=== PATIENT | female | born 1945 | race Caucasian/White ===

== ENCOUNTER 2021-03-24 08:00 | Outpatient (RCR) | payer MEDICARE, SELFPAY | END 2021-04-28 23:59 | LOC: IMMUN 08:00 | PROVIDERS: PCP Nurse Practitioner Family; Referring Provider Family Medicine; Visit Provider Family Medicine | DX: Z23 Encounter for immunization (principal) | CPT/HCPCS: 0001A; 0002A; 91300 ==

== ENCOUNTER 2022-02-15 10:02 | Outpatient (CLI) | payer MEDICARE, SELFPAY ==
[2022-02-15 10:08] LABS: Bacteria 0 SEEN /hpf (None Seen); Mucous, Urine 0 SEEN /hpf (<or=2+); Red Blood Cells-Urine 0 SEEN /hpf (0-5); Squamous Epithelial Cells - UA 0 SEEN /hpf (5-10); White Blood Cells 0 SEEN /hpf (0-5)
[2022-02-15 12:15] LABS: Absolute Lymphocyte Count 1.98 X10^3/uL (0.83-4.51); Absolute Neutrophil Count 4.1 X10^3/uL (2.0-7.7); Basophil# 0.04 X10^3/uL; Basophil% 0.6 % (0-1); Eosinophil# 0.15 X10^3/uL; Eosinophils% 2.2 % (0-5); Hematocrit 39.4 % (37-47); Hemoglobin 12.9 g/dL (12.0-15.0); Lymphocyte # 1.98 X10^3/ul (0.83-4.51); Lymphocyte % 28.8 % (19-41); Mean Corp Hgb Conc 32.7 g/dL (32-36); Mean Corpuscular Hgb 31.9 pg (27.0-32.0); Mean Corpuscular Volume 97.5 fL (81-99); Mean Platelet Vol. 9.9 fl (6.2-12.0); Monocyte# 0.57 X10^3/uL; Monocyte% 8.3 % (0-10); NRBC Flagged by Analyzer 0 % (0-5); Neutrophil # 4.12 X10^3/uL (2.7-7.7); Neutrophil % 59.8 % (47-70); Platelet Count 372 K/mm3 (150-450); RBC Distribution Width CV 11.9 % (11.6-14.6); RBC Distribution Width SD 43.2 fl (35.1-43.9); Red Blood Count 4.04 M/mm3 (4.2-5.4); White Blood Count 6.9 K/mm3 (4.4-11.0)
[2022-02-15 12:19] LABS: Color, Urine Yellow (Yellow); Glucose, Dipstick Normal (Normal); Ketone-Dipstick Negative (Negative); Leukocyte Esterase-Dipstick Negative /ul (Negative); Nitrite-Dipstick Negative (Negative); Occult Blood-Urine Negative /ul (Negative); Protein-Dipstick Negative (Negative); Urine Bilirubin Dipstick Negative (Negative); Urine Clarity Clear (Clear); Urine Urobilinogen Normal (Normal)
[2022-02-15 12:50] LABS: ALB/GLOB Ratio 1.1 RATIO (0.9-2.4); AST(SGOT) 16 U/L (15-37); Alanine Aminotransfer ALT/SGPT 16 U/L (13-56); Albumin, Serum 4.1 g/dL (3.2-5.0); Alkaline Phosphatase 89 U/L (45-117); Anion Gap 6 (5-15); BUN 21 mg/dL (7-18); BUN/Creat Ratio 22.1 RATIO (10-20); Calcium,Total 9.6 mg/dL (8.5-10.1); Chloride 106 mmol/L (98-107); Cholesterol 197 mg/dL (200); Creatinine, Serum 0.95 mg/dL (0.55-1.02); EST Glomerular Filtration Rate 60 mL/min (>60); Est Glom Filt Rate - Afr Amer 73 mL/min (>60); Globulin 3.6 g/dL (2.2-4.2); Glucose 98 mg/dL (74-106); High Density Lipoprotein 49 mg/dL; Potassium 3.7 mmol/L (3.5-5.1); Protein, Total 7.7 g/dL (6.4-8.2); Sodium Level 140 mmol/L (136-145); T4 Free Direct 0.96 ng/dL (0.76-1.46); Triglycerides 92 mg/dL; Very Low Density Lipoprotein 18 mg/dL (5-40)
[2022-02-15 12:55] LABS: Vitamin B12 216 pg/mL (211-911)
[2022-03-01 17:38] LABS: VITAMIN B6 4.4 ug/L (3.4-65.2); Vitamin B1, Thiamine 119.1 nmol/L (66.5-200.0)
== END 2022-02-15 23:59 | disposition home or self-care (01) ==
LOC: MFPLAB 10:05
PROVIDERS: PCP Family Medicine; Referring Provider Family Medicine; Visit Provider Family Medicine
DX: I10 Essential (primary) hypertension (principal); E04.1 Nontoxic single thyroid nodule; G62.9 Polyneuropathy, unspecified
CPT/HCPCS: 36415; 80053; 80061; 81001; 82607; 84207; 84425; 84439; 84443; 85025

== ENCOUNTER → 2022-03-03 | Outpatient (CLI) | payer MEDICARE, SELFPAY ==
--- NOTE | 2022-03-03 09:56 | ART_ITS ---
Reason For Study: Decresaed pedal pulses Procedure A bilateral lower extremity continuous wave Doppler with analog waveform analysis,segmental pressures,and ankle brachial indexes with exercise. Left Segmental Pressures Left brachial= 158mmHg. Left posterior tibial artery = 163mmHg. Left dorsalis pedis artery = 170mmHg. The left dorsalis pedis waveforms are triphasic. The left posterior tibial artery waveforms are triphasic. Right Segmental Pressures Right brachial= 167mmHg. Right posterior tibial artery = 173mmHg. Right dorsalis pedis artery = 185mmHg. The right dorsalis pedis waveforms are triphasic. The right posterior tibial artery waveforms are triphasic. Indices The right ankle brachial index by the dorsalis pedis is 1.11. The right ankle brachial index by the posterior tibial artery is 1.04. The right post exercise ankle brachial index is 1.25. The left ankle brachial index by the dorsalis pedis is 1.02. The left ankle brachial index by the posterior tibial artery is 0.98. The left post exercise ankle brachial index is 1.19. VL/Lower Ext Art Exam w/ Exercise Interpretation Summary Triphasic Doppler waveforms are noted at ankle level bilaterally. Pulse-volume recordings appear satisfactory bilaterally. Resting ankle-brachial indices are normal bilaterally . The patient was ambulated on a treadmill at 1.5 MPH and a 5% grade, following which ankle press ures augmented bilaterally, a normal physiological response. There is no evidence of significant arterial occlusive disease in the lower ext remities bilaterally. Ordering Physician: Stevan Walters Referring Physician: Stevan Walters Performed By: Belem Garza RVT
--- NOTE | 2022-03-03 10:06 | US_ITS ---
INDICATION: THYROID NODULE EXAMINATION: Ultrasound US Thyroid (eg thyroid, parathyroid, parotid) TECHNIQUE: Monroe scale and color doppler imaging was performed of the thyroid gland. COMPARISON: None. FINDINGS: RIGHT THYROID LOBE: The right lobe of the thyroid gland is prominent in size demonstrates homogeneous echogenicity is unremarkable vascularity, The right lobe of the thyroid gland measures 5.0 x 1.5 x 1.5 cm. 1 nodule visualized measuring 0.7 cm, three other nodules measuring less than 0.5 cm. #1- Location: Upper pole Size: 0.3 x 0.2 x 0.2 cm Composition: 0 Echogenicity: 2 Shape: 0 Margins: 0 Echogenic Foci: 0 Total points 2, TIRADS level TR2 #2- Location: Midpole Size: 0.4 x 0.3 x 0.3 cm. Composition: 2 Echogenicity: 1 Shape: 0 Margins: 0 Echogenic Foci: 0 Total points 3, TIRADS level TR3 #3- Location: Midpole Size: 0.7 x 0.7 x 0.6 cm Composition: 2 Echogenicity: 1 Shape: 0 Margins: 0 Echogenic Foci: 0 Total points 3, TIRADS level TR3 #4- Location: Lower pole Size: 0.3 x 0.2 x 0.2 cm. Composition: 2 Echogenicity: 1 Shape: 0 Margins: 0 Echogenic Foci: 0 Total points 3, TIRADS level TR3 LEFT THYROID LOBE: The left lobe of the thyroid gland is enlarged in size demonstrating homogenous echogenicity and unremarkable vascularity. The left lobe of the thyroid gland measures 4.9 x 1.5 x 1.1 cm. 2 nodules are visualized within the left lobe. #5- Location: Upper pole Size: 0.2 x 0.2 x 0.2 cm. Composition: 0 Echogenicity: 2 Shape: 0 Margins: 0 Echogenic Foci: 0 Total points 2, TIRADS level TR2 #6- Location: Lower Size: 0.5 x 0.4 x 0.4 cm Composition: 0 Echogenicity: 2 Shape: 0 Margins: 0 Echogenic Foci: 0 Total points 2, TIRADS level TR2 ISTHMUS: The isthmus demonstrates homogenous echogenicity and measures 0.5 cm in AP diameter. A hyperechoic nodule is visualized within the isthmus measuring 0.4 x 0.2 x 0.4 cm. US/Thyroid IMPRESSION: Unremarkable size and echogenicity of the thyroid gland. A 0.7 cm TR 3 nodule is visualized in the lower pole of the right lobe. 3 nodules measuring less than 0.5 cm are visualized in the right lobe. 2 nodules measuring less than 0.5 cm are visualized in the left lobe. A single nodule measuring less than 0.5 cm is visualized in the isthmus. TI-RADS follow up recommendations: TR1: Benign (0pts) No FNA biopsy. TR2: Not suspicious (2 pts) No FNA biopsy. TR3: Mildly suspicious (3 pts) FNA biopsy if nodule at least 2.5cm; follow if at least 1.5cm. TR4: Moderately suspicious (4-6 pts) FNA biopsy if nodule at least 1.5cm; follow if at least 1 cm. TR5: Highly suspicious (at least 7 pts) FNA if nodule at least 1cm; follow if at least 0.5cm. Electronically Signed: Rafa Felder MD at 13:15 EDT ,
== END | disposition home or self-care (01) ==
PROVIDERS: PCP Family Medicine; Referring Provider Family Medicine; Visit Provider Family Medicine
DX: R09.89 Other specified symptoms and signs involving the circulatory and respiratory systems (principal)
CPT/HCPCS: 76536; 93924

== ENCOUNTER → 2022-03-10 | Outpatient (CLI) | payer MEDICARE, SELFPAY ==
--- NOTE | 2022-03-10 09:57 | STRESSREP ---
Stress Test Report Date: 03-10-2022 Procedure: Exercise tolerance test/imaging study Indications: Chest pain Consent: Per the patient Procedure: The patient exercised on a Mnado protocol for 6 minutes completing Stage II achieving a peak heart rate of 139 bpm (97% predicted maximal heart rate) with a peak blood pressure 180/66 mmHg and a peak MET capacity of 7 METs. The baseline ECG demonstrated normal sinus rhythm. The peak exercise ECG demonstrated somatic/motion artifact with no obvious ECG changes. There was a rare PVC during exercise and an occasional PVC in early recovery. The functional capacity was considered good. There was no complaint of chest discomfort during exercise or recovery. The examination was discontinued secondary to dyspnea. Impression: 1. Technically adequate (percent predicted maximal heart rate greater than 85%) exercise tolerance test 2. Peak exercise ECG with somatic/motion artifact with no obvious ECG changes 3. There was a rare PVC during exercise and an occasional PVC in early recovery 4. Nuclear images pending Myocardial perfusion imaging study: Technique: The patient was injected with 11 point mCi of technetium 99m Cardiolite and subsequently rest SPECT Cardiolite nuclear imaging was obtained in the horizontal long, vertical long, and short axis views. The patient exercised on a Mando protocol for 6 minutes completing Stage II achieving a peak heart rate of 139 bpm (97% predicted maximal heart rate) with a peak blood pressure 180/66 mmHg and a peak MET capacity of 7 METs. The patient was injected with 34.8 mCi of technetium 99m Cardiolite and subsequently stress SPECT Cardiolite nuclear imaging was obtained in the horizontal long, vertical long, and short axis views. A gated Cardiolite study at peak stress was obtained. Interpretation: Rest and stress SPECT Cardiolite nuclear imaging status post realignment, normalization, and attenuation correction, demonstrates the appearance of relative uniform tracer uptake and myocardial perfusion appearing within normal limits. There is end systolic thickening and brightening. The gated Cardiolite study demonstrates myocardial thickening and inward wall motion. The reported LVEF is 83%. Impression: 1. Rest and stress SPECT Cardiolite nuclear imaging demonstrate relative uniform tracer uptake and myocardial perfusion appearing within normal limits. 2. The gated Cardiolite study reports an LVEF of 83%. This note was generated with [employer] software. It may contain incorrect words, spelling, and punctuation that were not noted in checking the note before signing.
== END | disposition home or self-care (01) ==
PROVIDERS: PCP Family Medicine; Referring Provider Family Medicine; Visit Provider Family Medicine
DX: E04.1 Nontoxic single thyroid nodule (principal); R07.9 Chest pain, unspecified; R09.89 Other specified symptoms and signs involving the circulatory and respiratory systems
CPT/HCPCS: 78452; 93017; A9500; A4216

== ENCOUNTER → 2022-05-31 | Outpatient (CLI) | payer MEDICARE, SELFPAY ==
[2022-05-31 12:48] LABS: Vitamin B12 356 pg/mL (211-911)
[2022-06-06 20:18] LABS: VITAMIN B6 18.1 ug/L (3.4-65.2); Vitamin B1, Thiamine 268.2 nmol/L (66.5-200.0)
== END | disposition home or self-care (01) ==
LOC: MFPLAB 10:52
PROVIDERS: PCP Family Medicine; Visit Provider Family Medicine
DX: G62.9 Polyneuropathy, unspecified (principal)
CPT/HCPCS: 36415; 82607; 84207; 84425

== ENCOUNTER → 2022-08-08 | Outpatient (CLI) | payer MEDICARE, SELFPAY ==
--- NOTE | 2022-08-08 14:02 | NEURO_ITS ---
NCS and/or EMG Patient Report Ordering Doctor: Stevan Walters DATE OF SERVICE: 08/08/22 Indication: Approximately 8 months of bilateral foot paresthesias. Associated loss of temperature sensation in the distal lower extremities. No shazia muscle weakness. No axial or radicular back pain. Findings: Nerve conduction studies were performed in the right and left lower extremities. The right peroneal motor study recording the extensor digitorum brevis showed a normal amplitude, normal distal latency and normal conduction velocity. No conduction block or focal slowing was present across the fibular neck. The right tibial motor study recording the abductor hallucis brevis showed a normal amplitude, normal distal latency and normal conduction velocity. Right sural sensory response showed a normal amplitude and conduction velocity. Right superficial peroneal sensory response showed a normal amplitude and cond uction velocity. Right medial plantar response showed a normal amplitude and conduction velocity. The left peroneal motor study recording the extensor digitorum brevis showed a normal amplitude, normal distal latency and normal conduction velocity. No conduction block or focal slowing was present across the fibular neck. The left tibial motor study recording the abductor hallucis brevis showed a normal amplitude, normal distal latency and normal conduction velocity. Left sural sensory response showed a normal amplitude and conduction velocity. Left superficial peroneal sensory response showed a normal amplitude and conduction velocity. Left medial plantar response showed a normal amplitude and conduction velocity. Needle EMG of the right lower extremity muscles was performed. No denervation was present in any muscle. Motor unit morphology, activation, and recruitment patterns were normal. Impression: This is a normal study. There is no electrophysiologic evidence of peripheral n europathy. In addition, there was no electrophysiologic evidence of lumbar radiculopathy. Please note: routine nerve conduction studies and needle EMG assess the larger, myelinated motor and sensory fibers. Thus, routine electrodiagnostic studies may be insensitive in detecting a peripheral neuropathy restricted to small fibers alone (i.e., pain, temperature and autonomic fibers). However, most peripheral neuropathies with predominantly small fiber large dysfunction will also involve large fibers to a lesser extent, and will demonstrate abnormalities on electrodiagnostic studies. Thus, clinical correlation is required in the interpretation of this negative electrodiagnostic study if an isolated small fiber neuropathy is considered. Kwadwo Morrissey D.O. Multi Select Codes Neurology Neurology Interp Codes: 11475-90 Musc test done w/n test comp (interp) and 52133-31 Nrv cndj test 9-10 studies (interp)
== END | disposition home or self-care (01) ==
LOC: PSN 12:39
PROVIDERS: PCP Family Medicine; Referring Provider Family Medicine; Visit Provider Family Medicine
DX: G62.9 Polyneuropathy, unspecified (principal); R20.0 Anesthesia of skin
CPT/HCPCS: 95886; 95911

== ENCOUNTER → 2022-08-11 | Outpatient (CLI) | payer MEDICARE, SELFPAY ==
[2022-08-11 09:02] LABS: Bacteria 0 SEEN /hpf (None Seen); Mucous, Urine 0 SEEN /hpf (<or=2+); Red Blood Cells-Urine 0 SEEN /hpf (0-5); White Blood Cells 0 SEEN /hpf (0-5)
[2022-08-11 09:58] LABS: Absolute Lymphocyte Count 2.57 X10^3/uL (0.83-4.51); Absolute Neutrophil Count 4.1 X10^3/uL (2.0-7.7); Basophil# 0.04 X10^3/uL; Basophil% 0.5 % (0-1); Eosinophil# 0.25 X10^3/uL; Eosinophils% 3.2 % (0-5); Hematocrit 38.9 % (37-47); Hemoglobin 12.8 g/dL (12.0-15.0); Lymphocyte # 2.57 X10^3/ul (0.83-4.51); Lymphocyte % 33.1 % (19-41); Mean Corp Hgb Conc 32.9 g/dL (32-36); Mean Corpuscular Hgb 31.4 pg (27.0-32.0); Mean Corpuscular Volume 95.3 fL (81-99); Mean Platelet Vol. 9.6 fl (6.2-12.0); Monocyte# 0.76 X10^3/uL; Monocyte% 9.8 % (0-10); NRBC Flagged by Analyzer 0 % (0-5); Neutrophil # 4.09 X10^3/uL (2.7-7.7); Neutrophil % 52.8 % (47-70); Platelet Count 301 K/mm3 (150-450); RBC Distribution Width CV 12.6 % (11.6-14.6); RBC Distribution Width SD 43.6 fl (35.1-43.9); Red Blood Count 4.08 M/mm3 (4.2-5.4); White Blood Count 7.8 K/mm3 (4.4-11.0)
[2022-08-11 10:02] LABS: Color, Urine Yellow (Yellow); Glucose, Dipstick Normal (Normal); Ketone-Dipstick Negative (Negative); Leukocyte Esterase-Dipstick Negative /ul (Negative); Nitrite-Dipstick Negative (Negative); Occult Blood-Urine Negative /ul (Negative); Protein-Dipstick Negative (Negative); Specific Gravity, Urine 1.005 (1.002-1.030); Urine Bilirubin Dipstick Negative (Negative); Urine Clarity Clear (Clear); Urine Urobilinogen Normal (Normal)
[2022-08-11 10:08] LABS: Squamous Epithelial Cells - UA 0-5 SEEN /hpf (5-10)
[2022-08-11 10:23] LABS: Vitamin B12 271 pg/mL (211-911)
[2022-08-11 10:25] LABS: AST(SGOT) 16 U/L (15-37); Alanine Aminotransfer ALT/SGPT 22 U/L (13-56); Albumin, Serum 3.6 g/dL (3.2-5.0); Alkaline Phosphatase 92 U/L (45-117); Anion Gap 9 (5-15); BUN 15 mg/dL (7-18); BUN/Creat Ratio 18.8 RATIO (10-20); Calcium,Total 8.9 mg/dL (8.5-10.1); Chloride 106 mmol/L (98-107); Cholesterol 194 mg/dL (200); EST Glomerular Filtration Rate 74 mL/min (>60); Est Glom Filt Rate - Afr Amer 89 mL/min (>60); Globulin 3.7 g/dL (2.2-4.2); Glucose 96 mg/dL (74-106); High Density Lipoprotein 43 mg/dL; Potassium 3.8 mmol/L (3.5-5.1); Protein, Total 7.3 g/dL (6.4-8.2); Sodium Level 138 mmol/L (136-145); Thyroid Stim Hormone (TSH) 3.62 uIU/mL (0.358-3.74); Triglycerides 294 mg/dL; Very Low Density Lipoprotein 59 mg/dL (5-40)
[2022-08-16 12:01] LABS: VITAMIN B6 14.7 ug/L (3.4-65.2); Vitamin B1, Thiamine 257.8 nmol/L (66.5-200.0)
== END | disposition home or self-care (01) ==
LOC: MFPLAB 08:56
PROVIDERS: PCP Family Medicine; Referring Provider Family Medicine; Visit Provider Family Medicine
DX: I10 Essential (primary) hypertension (principal); G62.9 Polyneuropathy, unspecified
CPT/HCPCS: 36415; 80053; 80061; 81001; 82607; 84207; 84425; 84443; 85025

== ENCOUNTER → 2023-01-09 | Outpatient (CLI) | payer MEDICARE, SELFPAY ==
--- NOTE | 2023-01-09 08:35 | BI_ITS ---
MAMMOGRAPHY - BILATERAL SCREENING REASON FOR EXAM: Female, 77 years old. Routine annual screening examination. PERTINENT HISTORY: Non-contributory. Remote left excisional breast biopsies. TECHNIQUE: Digital bilateral breast jaye (3D mammographic acquisition) in the CC and MLO projections. 2-D mediolateral oblique (MLO) and craniocaudad (CC) views of both breasts were obtained. CAD: Full Field Digital Mammography with Computer Added Detection was performed. COMPARISON: Comparison is made with prior outside examination dated 10/02/2017 FINDINGS: Breast Composition: There are scattered areas of fibroglandular density. There are no dominant masses or suspicious calcifications. Stable small benign-appearing bilateral axillary lymph nodes nodes. No other significant abnormalities are identified. There has been no significant change since the prior study. BI/SCRN MAMM (CAD)W/JAYE BILAT IMPRESSION: Stable bilateral screening mammogram. Yearly follow-up mammogram recommended. (A) ASSESSMENT CATEGORY: BIRADS Category 2: Benign. A letter regarding these results will be sent to the patient by the facility within 30 days. Approximately 10% of breast cancers are not detected by mammography. A normal mammogram should not delay biopsy of a clinically suspicious abnormality. [id number] Electronically Signed: James Gonzales MD at 9:34 EST ,
== END | disposition home or self-care (01) ==
LOC: OPBI 08:32
PROVIDERS: PCP Family Medicine; Referring Provider Nurse Practitioner Family; Visit Provider Nurse Practitioner Family
DX: Z12.31 Encounter for screening mammogram for malignant neoplasm of breast (principal)
CPT/HCPCS: 77063; 77067

== ENCOUNTER → 2023-04-05 | Outpatient (CLI) | payer MEDICARE, SELFPAY ==
[2023-04-05 09:40] LABS: Mucous, Urine 0 SEEN /hpf (<or=2+); Red Blood Cells-Urine 0 SEEN /hpf (0-5)
[2023-04-05 10:10] LABS: Absolute Lymphocyte Count 2.35 X10^3/uL (0.83-4.51); Absolute Neutrophil Count 5.1 X10^3/uL (2.0-7.7); Basophil# 0.05 X10^3/uL; Basophil% 0.6 % (0-1); Eosinophil# 0.27 X10^3/uL; Eosinophils% 3.1 % (0-5); Hemoglobin 13.2 g/dL (12.0-15.0); Lymphocyte # 2.35 X10^3/ul (0.83-4.51); Mean Corp Hgb Conc 32.2 g/dL (32-36); Mean Corpuscular Hgb 31.1 pg (27.0-32.0); Mean Corpuscular Volume 96.7 fL (81-99); Mean Platelet Vol. 9.5 fl (6.2-12.0); Monocyte# 0.85 X10^3/uL; Monocyte% 9.8 % (0-10); NRBC Flagged by Analyzer 0 % (0-5); Neutrophil # 5.14 X10^3/uL (2.7-7.7); Platelet Count 316 K/mm3 (150-450); RBC Distribution Width CV 12.4 % (11.6-14.6); RBC Distribution Width SD 44.4 fl (35.1-43.9); Red Blood Count 4.24 M/mm3 (4.2-5.4); White Blood Count 8.7 K/mm3 (4.4-11.0)
[2023-04-05 10:56] LABS: Vitamin B12 358 pg/mL (211-911)
[2023-04-05 10:57] LABS: ALB/GLOB Ratio 1.1 RATIO (0.9-2.4); AST(SGOT) 21 U/L (15-37); Alanine Aminotransfer ALT/SGPT 28 U/L (13-56); Alkaline Phosphatase 91 U/L (45-117); Anion Gap 7 (5-15); BUN 21 mg/dL (7-18); BUN/Creat Ratio 21.6 RATIO (10-20); Calcium,Total 9.4 mg/dL (8.5-10.1); Chloride 106 mmol/L (98-107); Cholesterol 227 mg/dL (200); Creatinine, Serum 0.97 mg/dL (0.55-1.02); EST Glomerular Filtration Rate 59 mL/min (>60); Est Glom Filt Rate - Afr Amer 71 mL/min (>60); Globulin 3.8 g/dL (2.2-4.2); Glucose 99 mg/dL (74-106); High Density Lipoprotein 39 mg/dL; Potassium 3.8 mmol/L (3.5-5.1); Protein, Total 7.8 g/dL (6.4-8.2); Sodium Level 139 mmol/L (136-145); Triglycerides 329 mg/dL; Very Low Density Lipoprotein 66 mg/dL (5-40)
[2023-04-05 12:41] LABS: Color, Urine Yellow (Yellow); Glucose, Dipstick Normal (Normal); Ketone-Dipstick Negative (Negative); Leukocyte Esterase-Dipstick 25 /ul (Negative); Nitrite-Dipstick Negative (Negative); Occult Blood-Urine Negative /ul (Negative); Protein-Dipstick Negative (Negative); Urine Bilirubin Dipstick Negative (Negative); Urine Clarity Sl. Cloudy (Clear); Urine Urobilinogen Normal (Normal)
[2023-04-05 13:04] LABS: Bacteria 1+ /hpf (None Seen); Squamous Epithelial Cells - UA 0-5 SEEN /hpf (5-10); White Blood Cells 0-5 SEEN /hpf (0-5)
[2023-04-08 06:08] LABS: VITAMIN B6 17.2 ug/L (3.4-65.2); Vitamin B1, Thiamine 215.5 nmol/L (66.5-200.0)
== END | disposition home or self-care (01) ==
LOC: MFPLAB 09:32
PROVIDERS: PCP Family Medicine; Visit Provider Family Medicine
DX: I10 Essential (primary) hypertension (principal); E55.9 Vitamin D deficiency, unspecified; E53.9 Vitamin B deficiency, unspecified
CPT/HCPCS: 36415; 80053; 80061; 81001; 82306; 82607; 84207; 84425; 85025

== ENCOUNTER → 2023-04-13 | Outpatient (CLI) | payer MEDICARE, SELFPAY ==
[2023-04-13 12:32] LABS: Anion Gap 8 (5-15); BUN 16 mg/dL (7-18); BUN/Creat Ratio 17.9 RATIO (10-20); Calcium,Total 9.3 mg/dL (8.5-10.1); Chloride 105 mmol/L (98-107); Creatinine, Serum 0.89 mg/dL (0.55-1.02); EST Glomerular Filtration Rate 65 mL/min (>60); Est Glom Filt Rate - Afr Amer 78 mL/min (>60); Glucose 117 mg/dL (74-106); Potassium 3.8 mmol/L (3.5-5.1); Sodium Level 139 mmol/L (136-145)
== END | disposition home or self-care (01) ==
LOC: MFPLAB 10:02
PROVIDERS: PCP Family Medicine; Visit Provider Family Medicine
DX: E78.5 Hyperlipidemia, unspecified (principal)
CPT/HCPCS: 36415; 80048

== ENCOUNTER → 2023-08-30 | Outpatient (CLI) | payer MEDICARE, SELFPAY ==
[2023-08-30 08:58] LABS: Bacteria 0 SEEN /hpf (None Seen); Mucous, Urine 0 SEEN /hpf (<or=2+); Red Blood Cells-Urine 0 SEEN /hpf (0-5)
[2023-08-30 10:03] LABS: Absolute Lymphocyte Count 1.79 X10^3/uL (0.83-4.51); Absolute Neutrophil Count 4.6 X10^3/uL (2.0-7.7); Basophil# 0.03 X10^3/uL; Basophil% 0.4 % (0-1); Eosinophils% 2.8 % (0-5); Hematocrit 39.2 % (37-47); Hemoglobin 12.5 g/dL (12.0-15.0); Lymphocyte # 1.79 X10^3/ul (0.83-4.51); Lymphocyte % 24.8 % (19-41); Mean Corp Hgb Conc 31.9 g/dL (32-36); Mean Corpuscular Volume 97.3 fL (81-99); Mean Platelet Vol. 9.7 fl (6.2-12.0); Monocyte# 0.61 X10^3/uL; Monocyte% 8.5 % (0-10); NRBC Flagged by Analyzer 0 % (0-5); Neutrophil # 4.55 X10^3/uL (2.7-7.7); Neutrophil % 63.1 % (47-70); Platelet Count 249 K/mm3 (150-450); RBC Distribution Width CV 12.3 % (11.6-14.6); RBC Distribution Width SD 44.3 fl (35.1-43.9); Red Blood Count 4.03 M/mm3 (4.2-5.4); White Blood Count 7.2 K/mm3 (4.4-11.0)
[2023-08-30 10:36] LABS: Color, Urine Yellow (Yellow); Glucose, Dipstick Normal (Normal); Ketone-Dipstick Negative (Negative); Leukocyte Esterase-Dipstick 25 /ul (Negative); Nitrite-Dipstick Negative (Negative); Occult Blood-Urine Negative /ul (Negative); Protein-Dipstick 15 mg/dl (Negative); Specific Gravity, Urine 1.015 (1.002-1.030); Urine Bilirubin Dipstick Negative (Negative); Urine Clarity Clear (Clear); Urine Urobilinogen Normal (Normal)
[2023-08-30 10:47] LABS: Vitamin B12 287 pg/mL (211-911); Vitamin D,25 Hydroxy 49.6 ng/mL
[2023-08-30 11:08] LABS: Squamous Epithelial Cells - UA 0-5 SEEN /hpf (5-10); White Blood Cells 0-5 SEEN /hpf (0-5)
[2023-08-30 11:24] LABS: AST(SGOT) 18 U/L (15-37); Alanine Aminotransfer ALT/SGPT 26 U/L (13-56); Albumin, Serum 3.6 g/dL (3.2-5.0); Alkaline Phosphatase 82 U/L (45-117); Anion Gap 6 (5-15); BUN 16 mg/dL (7-18); BUN/Creat Ratio 18.9 RATIO (10-20); Calcium,Total 9.3 mg/dL (8.5-10.1); Chloride 110 mmol/L (98-107); Cholesterol 127 mg/dL (200); Creatinine, Serum 0.85 mg/dL (0.55-1.02); EST Glomerular Filtration Rate 69 mL/min (>60); Est Glom Filt Rate - Afr Amer 83 mL/min (>60); Globulin 3.7 g/dL (2.2-4.2); Glucose 101 mg/dL (74-106); High Density Lipoprotein 48 mg/dL; Potassium 4.2 mmol/L (3.5-5.1); Protein, Total 7.3 g/dL (6.4-8.2); Sodium Level 143 mmol/L (136-145); Triglycerides 152 mg/dL; Very Low Density Lipoprotein 30 mg/dL (5-40)
[2023-09-03 16:07] LABS: VITAMIN B6 14.1 ug/L (3.4-65.2); Vitamin B1, Thiamine 207.4 nmol/L (66.5-200.0)
== END | disposition home or self-care (01) ==
LOC: MFPLAB 08:56
PROVIDERS: PCP Family Medicine; Visit Provider Family Medicine
DX: E55.9 Vitamin D deficiency, unspecified (principal); I10 Essential (primary) hypertension; E53.9 Vitamin B deficiency, unspecified
CPT/HCPCS: 36415; 80053; 80061; 81001; 82306; 82607; 84207; 84425; 85025

== ENCOUNTER → 2023-09-26 | Outpatient (CLI) | payer MEDICARE, SELFPAY ==
--- NOTE | 2023-09-26 09:09 | US_ITS ---
EXAM: US SOFT TISSUES HEAD AND NECK, THYROID CLINICAL INDICATION: THYROID NODULE TECHNIQUE: Monroe scale and color doppler imaging was performed of the thyroid gland. COMPARISON: US Thyroid dated 03/03/2022 FINDINGS: LEFT THYROID LOBE: Left lobe measures 4.9 x 1.8 x 1.6 cm. Stable 6 mm complex nodule within the lower pole is wider than tall, hypoechoic, well-defined and without microcalcification. TI-RADS points: 3. TI-RADS category: TR3. This nodule is mildly suspicious but no FNA or follow-up is necessary given the small size of this nodule. Stable 3 mm left thyroid nodule with similar characteristics and TR score. RIGHT THYROID LOBE: Right thyroid lobe measures 5.1 x 2.0 x 2.0 cm. Stable 9 mm nodule appears to be partially solid and cystic, wider than tall, well-defined, isoechoic and without microcalcification. TI-RADS points: 2. TI-RADS category: TR2. This nodule is not suspicious and no FNA or follow-up is necessary. Stable 4 mm right thyroid nodule is solid in nature, isoechoic, well-defined, wider than tall and without microcalcification. TI-RADS points: 3. TI-RADS category: TR3. This nodule is mildly suspicious but no FNA or follow-up is necessary given the small size of this nodule. ISTHMUS: Isthmus measures 5 mm in AP dimension. No thyroid nodules are present. US/Thyroid IMPRESSION: Stable bilateral thyroid nodules. Recommendations as described above. Electronically Signed: Dereck Quiroga MD at 9:00 EST ,
== END | disposition home or self-care (01) ==
PROVIDERS: PCP Family Medicine; Referring Provider Family Medicine; Visit Provider Family Medicine
DX: E04.1 Nontoxic single thyroid nodule (principal)
CPT/HCPCS: 76536

== ENCOUNTER → 2024-01-04 | Outpatient (CLI) | payer MEDICARE, SELFPAY ==
[2024-01-04 09:14] LABS: Red Blood Cells-Urine 0 SEEN /hpf (0-5)
--- OUTSIDE RECORDS SUMMARY | 2024-01-04 09:35 | XMS RPT_ITS | CCD ---
Author Name Unknown Address [address] [place] [id number] Organization [facility] Results Test Name Value Interpretation Reference Range Facil ity Summary Purpose Family History No Family History Records Found Advance Directives No Advanced Directives Records Found Additional Source Comments INFORMATION SOURCE (unrecogn ized section and content) FOR RECORDS PERTAINING TO PATIENTS WHO ARE OR HAVE BEEN ENROLLED IN A CHEMICAL DEPENDENCY/SUBSTANCEABUSE PROGRAM, SOME INFORMATION MAY BE OMITTED. This clinical summary was aggregated from multiple sources. Caution should be exercised in using it in the provision of clinical care. This summary normalizes information from multiple sources, and as a consequence, information in this document may materially change the coding, format and clinical context of patient data. In addition, data may be omitted in some cases. CLINICAL DECISIONS SHOULD BE BASED ON THE PRIMARY CLINICAL RECORDS. [facility]. provides no warranty or guarantee of the accuracy or completeness of information in this document.
[2024-01-04 10:13] LABS: Absolute Lymphocyte Count 1.65 X10^3/uL (0.83-4.51); Absolute Neutrophil Count 7.1 X10^3/uL (2.0-7.7); Basophil# 0.05 X10^3/uL; Basophil% 0.5 % (0-1); Eosinophil# 0.21 X10^3/uL; Eosinophils% 2.1 % (0-5); Hematocrit 37.7 % (37-47); Hemoglobin 12.1 g/dL (12.0-15.0); Lymphocyte # 1.65 X10^3/ul (0.83-4.51); Lymphocyte % 16.8 % (19-41); Mean Corp Hgb Conc 32.1 g/dL (32-36); Mean Corpuscular Hgb 30.4 pg (27.0-32.0); Mean Corpuscular Volume 94.7 fL (81-99); Mean Platelet Vol. 9.7 fl (6.2-12.0); Monocyte# 0.77 X10^3/uL; Monocyte% 7.8 % (0-10); NRBC Flagged by Analyzer 0 % (0-5); Neutrophil # 7.08 X10^3/uL (2.7-7.7); Neutrophil % 72.1 % (47-70); Platelet Count 376 K/mm3 (150-450); RBC Distribution Width CV 13.2 % (11.6-14.6); RBC Distribution Width SD 45.4 fl (35.1-43.9); Red Blood Count 3.98 M/mm3 (4.2-5.4); White Blood Count 9.8 K/mm3 (4.4-11.0)
[2024-01-04 11:10] LABS: Vitamin B12 425 pg/mL (211-911); Vitamin D,25 Hydroxy 54.8 ng/mL
[2024-01-04 11:16] LABS: ALB/GLOB Ratio 0.9 RATIO (0.9-2.4); AST(SGOT) 20 U/L (15-37); Alanine Aminotransfer ALT/SGPT 34 U/L (13-56); Albumin, Serum 3.7 g/dL (3.2-5.0); Alkaline Phosphatase 100 U/L (45-117); Anion Gap 5 (5-15); BUN 16 mg/dL (7-18); BUN/Creat Ratio 17.3 RATIO (10-20); Calcium,Total 9.3 mg/dL (8.5-10.1); Chloride 110 mmol/L (98-107); Cholesterol 135 mg/dL (200); Creatinine, Serum 0.92 mg/dL (0.55-1.02); EST Glomerular Filtration Rate 62 mL/min (>60); Est Glom Filt Rate - Afr Amer 75 mL/min (>60); Glucose 122 mg/dL (74-106); High Density Lipoprotein 45 mg/dL; Magnesium 2.1 mg/dL (1.6-2.6); Phosphorus 2.2 mg/dL (2.5-4.9); Potassium 3.2 mmol/L (3.5-5.1); Protein, Total 7.7 g/dL (6.4-8.2); Sodium Level 142 mmol/L (136-145); Thyroid Stim Hormone (TSH) 2.79 uIU/mL (0.358-3.74); Triglycerides 257 mg/dL; Very Low Density Lipoprotein 51 mg/dL (5-40)
[2024-01-04 12:23] LABS: Color, Urine Yellow (Yellow); Glucose, Dipstick Normal (Normal); Ketone-Dipstick Negative (Negative); Leukocyte Esterase-Dipstick 100 /ul (Negative); Nitrite-Dipstick Negative (Negative); Occult Blood-Urine Negative /ul (Negative); Protein-Dipstick 15 mg/dl (Negative); Urine Bilirubin Dipstick Negative (Negative); Urine Clarity Clear (Clear); Urine Urobilinogen Normal (Normal)
[2024-01-04 12:41] LABS: Bacteria 1+ /hpf (None Seen); Mucous, Urine 1+ /hpf (<or=2+); Squamous Epithelial Cells - UA 0-5 SEEN /hpf (5-10); White Blood Cells 0-5 SEEN /hpf (0-5)
[2024-01-10 17:07] LABS: Vitamin B1, Thiamine 183.7 nmol/L (66.5-200.0)
== END | disposition home or self-care (01) ==
LOC: MFPLAB 09:12
PROVIDERS: PCP Family Medicine; Visit Provider Family Medicine
DX: I10 Essential (primary) hypertension (principal); E55.9 Vitamin D deficiency, unspecified
CPT/HCPCS: 80053; 80061; 81001; 82306; 82607; 83735; 84100; 84425; 84443; 85025

== ENCOUNTER → 2024-01-22 | Outpatient (CLI) | payer MEDICARE, SELFPAY ==
--- OUTSIDE RECORDS SUMMARY | 2024-01-22 09:24 | XMS RPT_ITS | CCD ---
Author Name Unknown Address [address] [place] [id number] Organization [facility] Results Test Name Value Interpretation [...] BE BASED ON THE PRIMARY CLINICAL RECORDS. [employer] [facility]. provides no warranty or guarantee of the accuracy or completeness of information in this document.
[2024-01-22 11:15] LABS: Hemoglobin A1c 5.5 % (3.8-5.6)
[2024-01-22 11:21] LABS: Anion Gap 6 (5-15); BUN 21 mg/dL (7-18); BUN/Creat Ratio 22.6 RATIO (10-20); Calcium,Total 9.3 mg/dL (8.5-10.1); Chloride 107 mmol/L (98-107); Creatinine, Serum 0.93 mg/dL (0.55-1.02); EST Glomerular Filtration Rate 62 mL/min (>60); Est Glom Filt Rate - Afr Amer 75 mL/min (>60); Glucose 110 mg/dL (74-106); Potassium 3.8 mmol/L (3.5-5.1); Sodium Level 140 mmol/L (136-145)
== END | disposition home or self-care (01) ==
LOC: MFPLAB 09:01
PROVIDERS: PCP Family Medicine; Visit Provider Family Medicine
DX: R73.09 Other abnormal glucose (principal); E87.6 Hypokalemia
CPT/HCPCS: 36415; 80048; 83036

== ENCOUNTER 2024-07-19 09:15 | Day surgery (SDC) | payer MEDICARE, SELFPAY ==
[2024-07-19] VITALS (8 sets, daily range): BP systolic 85–139; BP diastolic 39–47; PULSE 70–80; RESP 16–18; TEMP 36.3–36.8; O2SAT 93–98; BMI 27.9
[2024-07-19] MEDS: Lactated Ringers 1,000 ML 15 ML IV (09:47)
--- NOTE | 2024-07-19 10:02 | PRE.ANES_ITS ---
ASA Classification* ASA Classification ASA Classification: 2 Assessment & Plan Anesthesia* Anesthesia Assessment Anesthesia Assessment: Discussed sedation and/or anesthesia options, risks, benefits, and alternatives with patient/parents/legal guardian/POA. Questions invited. The patient/parents/legal guardian/POA seems to understand and agrees to proceed with anesthesia plan. Reviewed the physical assessment, medical history, allergy history and patient home medications list prior to surgery/procedure/anesthetic and documented any changes. Performed airway and anesthesia risk assessments. Anesthesia Type Anesthesia Type: MAC History Source History Obtained from:: Patient and Chart Anesthesia Focused Assessment* Temperature: 98.2 F Pulse Rate: 78 Blood Pressure: 139/43 Respiratory Rate: 18 Pulse Ox: 98 Oxygen Delivery Method: Room Air Airway Assessment Mouth opens: >3 cm Mallampati Score: IV Teeth Condition: Partial (Patient has partial upper and lower dentures.) Neck Range of motion (ROM): Full ROM Focused Labs Anesthesia Preop lab: CBC WBC 9.8 K/mm3 (4.4-11.0) 01/04/24 09:12 RBC 3.98 M/mm3 (4.2-5.4) L 01/04/24 09:12 Hgb 12.1 g/dL (12.0-15.0) 01/04/24 09:12 Hct 37.7 % (37-47) 01/04/24 09:12 Plt Count 376 K/mm3 (150-450) 01/04/24 09:12 CHEMISTRY Potassium 3.8 mmol/L (3.5-5.1) 01/22/24 09:01 Sodium 140 mmol/L (136-145) 01/22/24 09:01 Magnesium 2.1 mg/dL (1.6-2.6) 01/04/24 09:12 Phosphorus 2.2 mg/dL (2.5-4.9) L 01/04/24 09:12 BUN 21 mg/dL (7-18) H 01/22/24 09:01 Creatinine 0.93 mg/dL (0.55-1.02) 01/22/24 09:01 Glucose 110 mg/dL (74-106) H 01/22/24 09:01 TSH 2.79 uIU/mL (0.358-3.74) 01/04/24 09:12 COAG Pre-Assessment Diagnosis/Proposed Procedure Planned Operative Procedure(s): COLONOSCOPY Anesthesia History 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 When Was Last Pacemaker Check QUESTION #4 FULL TEXT: You/Your Family Experience fever (hyperthermia) with Anesthesia Last Oral Intake Last Oral intake: Last Oral Intake NPO since 00:00 07/19/24 09:49 Meds taken in AM with sips of Yes 07/19/24 09:49 water? Meds patient instructed to take am of surgery PONV PONV - chainsaw mechanic: PONV - chainsaw mechanic Female Yes 07/17/24 11:14 HX of Motion Sickness Yes 07/17/24 11:14 HX of N/V After Surgery No 07/17/24 11:14 Non-Smoker Yes 07/17/24 11:14 Duration of Surgery greater No 07/17/24 11:14 than 60 minutes Number of Risk Factors 3 07/17/24 11:14 PONV Score Moderate Risk 07/17/24 11:14 Height & Weight Height & Weight: Anesthesia: Height & Weight Height 5 ft 07/19/24 09:49 Weight: 64.864 kg 07/19/24 09:49 Body Mass Index (BMI) 27.9 07/19/24 09:49 Respiratory Assessment Respiratory Assessment - chainsaw mechanic: Respiratory Tract Infection Hx - chainsaw mechanic Hx Respiratory Tract Infection No 07/17/24 11:14 STOP Sleep Apnea STOP Sleep Apnea - chainsaw mechanic: STOP Sleep Apnea - chainsaw mechanic Hx Hypertension Yes 07/17/24 11:14 Hx Sleep Apnea No 07/17/24 11:14 CPAP BIPAP Do you snore loudly (louder No 07/17/24 11:14 than talking or can be heard Do you often feel tired/ No 07/17/24 11:14 fatigued/ sleepy during daytime? Has anyone observed you stop No 07/17/24 11:14 breathing during sleep? STOP Results Negative 07/17/24 11:14 QUESTION #5 FULL TEXT : Do you snore loudly (louder than talking or can be heard through closed doors)? 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 Specify any problems Hx of Preganancy in last 3 No 07/17/24 11:14 Months Nurse Filling Out Transfusion [facility] 07/17/24 11:14 & Questions: Date: 07/17/24 07/17/24 11:14 Time: 11:20 07/17/24 11:14 Patient unable to answer at this time (ie. confused, unrespo /Reproduction History /Reproductive History - chainsaw mechanic: /Reproductive Hx- chainsaw mechanic Hx Now No 07/17/24 11:14 Gestational Age (in weeks): EDC: Hx Hx Para Hx Section SAB No 07/17/24 11:14 Active Medications Active Medications: Current Medications Generic Name Dose Route Start Last Admin Trade Name Freq PRN Reason Stop Dose Admin Lactated Ringer's 1,000 mls @ 15 mls/hr 07/19/24 09:30 07/19/24 09:47 IV 15 mls/hr .Q48H MIN Administration PFSH Medical History Wears partial dentures Wears glasses Post-menopausal Anxiety High cholesterol Non-smoker History of stress test Depression Incontinence Hyperlipidemia HTN (hypertension) Home Medications ?Medication ?Instructions ?Recorded ?Last Taken ?Type sertraline 100 mg tablet 100 mg PO DAILY 10/20/14 07/18/24 History cholecalciferol (vitamin D3) 125 125 mcg PO DAILY 12/06/23 07/18/24 History mcg (5,000 unit) capsule vitamin B complex 1 cap PO DAILY 12/06/23 07/18/24 History amlodipine 10 mg tablet 10 mg PO QDAY 06/25/24 07/19/24 History calcium carbonate 500 mg PO DAILY 06/25/24 07/18/24 History hydrochlorothiazide 25 mg tablet 25 mg PO QDAY 06/25/24 07/18/24 History latanoprost 0.005 % eye drops 1 drp ophthalmic (eye) QHS GLAUCOMA 06/25/24 07/18/24 History lisinopril 40 mg tablet 40 mg PO DAILY 06/25/24 07/19/24 History rosuvastatin 10 mg tablet 10 mg PO QHS 06/25/24 07/18/24 History vitamins A,C,T-jmyi-urqbyx 4,296 1 cap PO BID 06/25/24 07/18/24 History mcg-226 mg-90 mg capsule (PreserVision AREDS) Allergy/AdvReac Type Severity Reaction Status Date / Time influenza virus vaccine ts Allergy Severe Angioedema Verified 07/19/24 09:37 2013-201 (From Fluarix) atenolol (From Tenoretic) Allergy Mild Other Verified 07/19/24 09:37 chlorthalidone (From Allergy Mild Other Verified 07/19/24 09:37 Tenoretic) quinapril (From Accupril) Allergy Mild Rash Verified 07/19/24 09:37 Family History (Updated 06/25/24 @ 14:48 by Cesilia Yañez) Father Gastric ulcer Brother Cancer leukemia and bile duct Sister Diabetes Hypertension Kidney disease Mother CVA (cerebral vascular accident) Hypertension Surgical History History of lumpectomy History of carpal tunnel release of both wrists History of hysterectomy History of cataract extraction History of cholecystectomy History of appendectomy Social History Smoking Status: Never smoker alcohol intake: never substance use type: does not use Review of Systems (Anesthesia) ROS Narrative System reviewed and no additional complaints, except as documented.
--- NOTE | 2024-07-19 10:24 | HP.PCM_ITS ---
History and Physical Date of Admission: 07/19/24 Intake Vital Signs 12/06/2416:20 06/25/2414:40 Height 5 ft 1 in 5 ft 1 in Weight: 151 lb 8 oz 146 lb BMI 28.6 27.6 BP 140/68 H 150/68 H Blood Pressure Location Lt brachial Rt brachial Position Sitting Sitting Respiration 17 18 Pulse 109 H Pulse Source NIBP Temp 98.1 F Temp Source Temporal Pulse Oximetry (%) 96 Oxygen Delivery Method room air Intake Visit Reasons: BLOOD IN STOOL Chief Complaint: blood in stool Vice President Regulatory Required: No Is patient in pain?: No Allergies influenza virus vaccine ts (From Fluarix) Allergy (Severe, Verified 12/06/23 17:21) Angioedemarosuvastatin calcium (From Crestor) Allergy (Severe, Verified 12/06/23 17:21) Unknownatenolol (From Tenoretic) Allergy (Mild, Verified 06/25/24 14:43) Otherchlorthalidone (From Tenoretic) Allergy (Mild, Verified 06/25/24 14:43) Otherquinapril (From Accupril) Allergy (Mild, Verified 06/25/24 14:42) Rash Medications ?Medication ?Instructions ?Recorded ?Confirmed ?Type sertraline 100 mg tablet 100 mg PO DAILY 10/20/14 06/25/24 History cholecalciferol (vitamin D3) 125 125 mcg PO DAILY 12/06/23 06/25/24 History mcg (5,000 unit) capsule vitamin B complex 1 cap PO DAILY 12/06/23 06/25/24 History amlodipine 10 mg tablet 10 mg PO QDAY 06/25/24 06/25/24 History calcium carbonate 500 mg PO DAILY 06/25/24 06/25/24 History hydrochlorothiazide 25 mg tablet 25 mg PO QDAY 06/25/24 06/25/24 History latanoprost 0.005 % eye drops drp ophthalmic (eye) 06/25/24 06/25/24 History lisinopril 40 mg tablet 40 mg PO 06/25/24 06/25/24 History rosuvastatin 10 mg tablet 10 mg PO QHS 06/25/24 06/25/24 History vitamins A,C,N-seto-hkmrlz 4,296 1 cap PO BID 06/25/24 06/25/24 History mcg-226 mg-90 mg capsule (PreserVision AREDS) Have you fallen in the past year?: No PFSH Medical History (Updated 06/25/24 @ 16:12 by Audrey PIKE PA-C) Depression Incontinence Hyperlipidemia HTN (hypertension) Surgical History (Updated 06/25/24 @ 14:40 by Cesilia Yañez) History of lumpectomy History of carpal tunnel release of both wrists History of hysterectomy History of cataract extraction History of cholecystectomy History of appendectomy Family History (Updated 06/25/24 @ 14:48 by Cesilia Yañez) Father Gastric ulcerBrother Cancer leukemia and bile ductSister Diabetes Hypertension Kidney diseaseMother CVA (cerebral vascular accident) Hypertension Social History Smoking Status: Never smoker alcohol intake: never substance use type: does not use HPI HPI Surgical H&P: Yes HPI: Patient is an 78 y/o F who presents for a screening colonoscopy and recent history of rectal bleeding. Patient notes approximately 2 weeks ago she had a 5 day history of bright red blood per rectum with associated itchiness and burning. She adds that for the past 1 week, she has no longer had any rectal bleeding or burning/itchiness. Patient was evaluated by her PCP who performed an in office fecal occult blood test, which returned positive. Patient notes her last colonoscopy was in [address] Howe. Hemorrhoids were noted at that time. No specimens were collected. Patient was recommended to have a repeat colonoscopy in 10 years. Patient denies any family history of colon cancer. She denies any recent changes in bowel habits. She denies abdominal pain or melena. She denies any reflux symptoms or GERD. She is not on any blood thinners. She denies any previous complication or side effects from anesthesia. She denies previous myocardial infarction, stroke or blood clots. 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 She denies any lung issues. She notes history of glaucoma and macular degeneration. ROS General General: No weight change, appetite, fatigue, colon cancer, breast cancer or weakness HEENT HEENT: No difficulty swallowing, eye injury, eye surgery, swollen glands or hoarseness Endo Endocrine: No thyroid disease, diabetes mellitus, thyroid cancer, Hair loss, heat intolerance or cold intolerance Skin Skin: No rash or changing moles Breast Breast: No left breast lump, right breast lump, nipple discharge, breast pain, abnormal mammogram, abnormal US or breast enlargement Musc Musculoskeletal: No back problems, arthritis, rheumatoid arthritis, gout or joint pain Cardio Cardiovascular: Yes high blood pressure; No murmur, pacemaker, heart disease, atrial fibrillation, heart attack, heart stent, palpitations, shortness of breat with exertion or chest pain Psych Psychiatric: No depression, anxiety or hearing voices Resp Respiratory: No shortness of breath, No sleep apnea, No cough, No COPD, No asthma, No emphysema and No wheezing Gastro Gastrointestinal: No abdominal pain, No nausea or vomiting, No diarrhea, No constipation, No blood in stool, No acid reflux, Yes hemorrhoids, No ulcers, No gallbladder problem and No black,tarry stools Kirk Hematologic: No blood thinners, No blood disorders, No bleeding, No anemia and No blood clots Neuro Neurologic: No system reviewed and no additional complaints, except as documented, No as per HPI, No abnormal gait, No abnormal hearing, No abnormal movements, No abnormal speech, No behavioral changes, No burning sensations, No confusion, No convulsions, No disequilibrium, No dizziness, No localized weakness, No frequent falls, No headache(s), No lack of coordination, No loss of vision, No memory loss, No numbness, No other visual disturbances, No radicular pain, No restless legs, No sensory deficit, No syncope, No tingling, No tremor(s), No weakness and No other Exam Const General: cooperative, healthy appearing and comfortable [facility] Head: normal to inspection Eyes General: appearance normal, both eyes and all related structures Neck Neck: normal visual inspection Neck mass: No Resp Effort & Inspection: normal respiratory effort Auscultation: clear to auscultation bilaterally Cardio Rate: regular rate Rhythm: regular rhythm GI Palpation: soft and nontender Auscultation: normal bowel sounds Musc Cervical Spine: normal cervical lordosis Skin General: no rashes or lesions noted Neuro General: no focal motor deficits and CN's II-XI intact bilaterally Extrem General: normal to inspection Psych Appearance: grossly normal Affect: normal affect Assessment and Plan Assessment and Plan (1) Rectal bleeding: Status: Acute (2) Encounter for screening colonoscopy: Status: Acute Plan Patient is an 78 y/o F who presents with a 5 day history of rectal bleeding, which has since resolved. She is due for a screening colonoscopy. Dr. Gallo will plan to perform a colonoscopy with possible biopsies. Procedure details, risks and benefits have been explained to the patient. Plan for a 1 day bowel prep with Miralax. Patient has had the opportunity to ask and have questions answered. Patient verbally understands and agrees with the plan. I have examined the patient and the H&P has been reviewed. There are no clinical changes since date of exam. Yoel Gallo MD Pager: [facility] [address] [place] [address] [address] [place] [address] Office:
--- NOTE | 2024-07-19 11:06 | PCM.POST.ANE ---
Anesthesia: Postop Eval I Current Vital Signs Temperature: 97.5 F Pulse Rate: 78 Blood Pressure: 88/47 Respiratory Rate: 16 Pulse Ox: 95 Oxygen Delivery Method: Room Air Assessment Airway patent: Yes Spontaneous unlabored respirations: Yes Mental status: Awake nausea: No Vomiting: No Anesthesia Complication: Yes Anesthesia Complication Comment:: bradycardia, tx with glycopyrrolate and ephedrine Fluid Hydration Crystalloid volume administer (ml): 600 Total IV fluid infused: 600 Progress Note Anesthesia document: Postop Eval 1 completed: Yes
--- NOTE | 2024-07-19 11:07 | OP.CCLET_ITS ---
07/19/2024 Stevan Walters [address] [place] [address] Re : Colonoscopy procedure for Neeru Cruz Dear Dr. Walters This procedure was performed on Friday, July 19, 2024. My impressions and recommendations are as follows: Impressions : - One large polyp in the sigmoid colon. - The entire examined colon is normal on direct and retroflexion views. - No specimens collected. Recommendations : - Discharge patient to home. - Resume previous diet. - Continue present medications. - Repeat colonoscopy because the examination was incomplete. You will be referred to Dr Ko for repeat attempt at polypectomy My findings are described in the full procedure note, which is enclosed. If I can be of further assistance, please feel free to contact me at Doctor phone number(s): , Work: . Sincerely, Yoel Gallo MD 07/19/2024 11:06:36 AM This report has been signed electronically.
--- NOTE | 2024-07-19 11:07 | OP.COLON_ITS ---
Patient Name: Neeru Cruz Procedure Date: 07/19/2024 10:31 AM Date of : 1945 Age: 78 Procedure: Colonoscopy Indications: Rectal bleeding Providers: Yoel Gallo MD Medicines: Propofol per Anesthesia Patient Profile: This is an 78 year old female. Refer to note in patient chart for documentation of history and physical. Last Colonoscopy: 10 years ago. Complications: No immediate complications. Procedure: Pre-Anesthesia Assessment: - Prior to the procedure, a History and Physical was performed, and patient medications and allergies were reviewed. The patient's tolerance of previous anesthesia was also reviewed. The risks and benefits of the procedure and the sedation options and risks were discussed with the patient. All questions were answered, and informed consent was obtained. Prior Anticoagulants: The patient has taken no anticoagulant or antiplatelet agents. After reviewing the risks and benefits, the patient was deemed in satisfactory condition to undergo the procedure. After I obtained informed consent, the scope was passed under direct vision. Throughout the procedure, the patient's blood pressure, pulse, and oxygen saturations were monitored continuously. The colonoscope was introduced through the anus and advanced to the cecum, identified by appendiceal orifice and ileocecal valve. The colonoscopy was performed without difficulty. The patient tolerated the procedure well. The quality of the bowel preparation was good. The ileocecal valve, appendiceal orifice, and rectum were photographed. Scope In: 10:38:03 AM Scope Withdrawal Time 0 hours 15 minutes 54 seconds Scope Out: 10:59:38 AM Total Procedure Duration Time 0 hours 21 minutes 35 seconds Findings: A large polyp was found in the sigmoid colon. Polyp resection was incomplete due to the polypectomy being technically difficult and complex. The entire examined colon appeared normal on direct and retroflexion views. Impression: - One large polyp in the sigmoid colon. - The entire examined colon is normal on direct and retroflexion views. - No specimens collected. Recommendation: - Discharge patient to home. - Resume previous diet. - Continue present medications. - Repeat colonoscopy because the examination was incomplete. You will be referred to Dr Ko for repeat attempt at polypectomy Procedure Code(s): --- Professional --- 84401, Colonoscopy, flexible; diagnostic, including collection of specimen(s) by brushing or washing, when performed (separate procedure) Diagnosis Code(s): --- Professional --- D12.5, Benign neoplasm of sigmoid colon K62.5, Hemorrhage of anus and rectum CPT copyright 2021 [employer]. All rights reserved. The codes documented in this report are preliminary and upon manufacturing team member review may be revised to meet current compliance requirements. Yoel Gallo MD 07/19/2024 11:06:36 AM This report has been signed electronically. Number of Addenda: 0 Note Initiated On: 07/19/2024 10:31 AM
--- NOTE | 2024-07-19 15:16 | PCM.POSTANE2 ---
Anesthesia Postop Eval I Sum Postop Eval Completion status Anesthesia document: Postop Eval 1 completed: Yes Anesthesia Postop Eval I Summary Anesthesia Postop Eval I Summary: Anesthesia Postop Eval I: Assessment Summary Airway patent Yes 07/19/24 11:08 [email or web address] Spontaneous unlabored Yes 07/19/24 11:08 [email or web address] respirations Mental status Awake 07/19/24 11:08 [email or web address] nausea No 07/19/24 11:08 [email or web address] Vomiting No 07/19/24 11:08 [email or web address] Anesthesia Postop Eval I: Fluid Summary Crystalloid volume administer 600 07/19/24 11:08 [email or web address] (ml) Colloids volume administered ( ml) Blood Product volume administered (ml) Total IV fluid infused 600 07/19/24 11:08 [email or web address] Anesthesia Postop Eval I: Summary Notes Anesthesia Complication Yes 07/19/24 11:08 [email or web address] Anesthesia Complication bradycardia, tx 07/19/24 11:08 [email or web address] Comment: with glycopyrrolate and ephedrine Post-operative progress note Anesthesia: Postop Eval II Evaluation Mental status: Awake and Calm Pain Level: 0 nausea: No Vomiting: No Complications Anesthesia Complication: No
== END 2024-07-19 12:09 | disposition home or self-care (01) ==
LOC: EN 09:16 → AC 09:17
PROVIDERS: PCP Family Medicine; Referring Provider Family Medicine; Visit Provider Surgery
PROC: 0DJD8ZZ Inspection of Lower Intestinal Tract, Via Natural or Artificial Opening Endoscopic (ICD-10-PCS; CPT 45378; principal; 2024-07-19 10:25)
DX: Z12.11 Encounter for screening for malignant neoplasm of colon (principal); K62.5 Hemorrhage of anus and rectum; E78.00 Pure hypercholesterolemia, unspecified; K63.5 Polyp of colon; I10 Essential (primary) hypertension; Z79.899 Other long term (current) drug therapy; Z90.49 Acquired absence of other specified parts of digestive tract
CPT/HCPCS: G0121; J7120; J1610; J2405

== ENCOUNTER → 2024-08-07 | Outpatient (CLI) | payer MEDICARE, SELFPAY ==
[2024-08-07 09:37] LABS: Bacteria 0 SEEN /hpf (None Seen); Mucous, Urine 0 SEEN /hpf (<or=2+); Red Blood Cells-Urine 0 SEEN /hpf (0-5); White Blood Cells 0 SEEN /hpf (0-5)
[2024-08-07 12:24] LABS: Color, Urine Yellow (Yellow); Glucose, Dipstick Normal (Normal); Ketone-Dipstick Negative (Negative); Leukocyte Esterase-Dipstick Negative /ul (Negative); Nitrite-Dipstick Negative (Negative); Occult Blood-Urine Negative /ul (Negative); Protein-Dipstick Negative (Negative); Specific Gravity, Urine 1.005 (1.002-1.030); Urine Bilirubin Dipstick Negative (Negative); Urine Clarity Sl. Cloudy (Clear); Urine Urobilinogen Normal (Normal); Urine pH 6.5 (5.0 - 8.0)
[2024-08-07 12:25] LABS: Absolute Lymphocyte Count 2.15 X10^3/uL (0.83-4.51); Absolute Neutrophil Count 5.9 X10^3/uL (2.0-7.7); Basophil# 0.04 X10^3/uL; Basophil% 0.4 % (0-1); Eosinophil# 0.17 X10^3/uL; Eosinophils% 1.9 % (0-5); Hematocrit 39.1 % (37-47); Lymphocyte # 2.15 X10^3/ul (0.83-4.51); Lymphocyte % 23.8 % (19-41); Mean Corp Hgb Conc 33.2 g/dL (32-36); Mean Corpuscular Hgb 31.8 pg (27.0-32.0); Mean Corpuscular Volume 95.6 fL (81-99); Mean Platelet Vol. 9.6 fl (6.2-12.0); Monocyte# 0.67 X10^3/uL; Monocyte% 7.4 % (0-10); NRBC Flagged by Analyzer 0 % (0-5); Neutrophil # 5.94 X10^3/uL (2.7-7.7); Neutrophil % 65.7 % (47-70); Platelet Count 305 K/mm3 (150-450); RBC Distribution Width CV 12.4 % (11.6-14.6); RBC Distribution Width SD 43.5 fl (35.1-43.9); Red Blood Count 4.09 M/mm3 (4.2-5.4)
[2024-08-07 12:34] LABS: Vitamin B12 293 pg/mL (211-911); Vitamin D,25 Hydroxy 47.4 ng/mL
[2024-08-07 12:38] LABS: Squamous Epithelial Cells - UA 0-5 SEEN /hpf (5-10)
[2024-08-07 12:43] LABS: ALB/GLOB Ratio 1.1 RATIO (0.9-2.4); AST(SGOT) 19 U/L (15-37); Alanine Aminotransfer ALT/SGPT 29 U/L (13-56); Albumin, Serum 3.8 g/dL (3.2-5.0); Alkaline Phosphatase 88 U/L (45-117); Anion Gap 4 (5-15); BUN 19 mg/dL (7-18); BUN/Creat Ratio 19.7 RATIO (10-20); Calcium,Total 9.3 mg/dL (8.5-10.1); Chloride 106 mmol/L (98-107); Cholesterol 149 mg/dL (200); Creatinine, Serum 0.96 mg/dL (0.55-1.02); EST Glomerular Filtration Rate 59 mL/min (>60); Est Glom Filt Rate - Afr Amer 71 mL/min (>60); Globulin 3.6 g/dL (2.2-4.2); Glucose 98 mg/dL (74-106); High Density Lipoprotein 42 mg/dL; Potassium 3.8 mmol/L (3.5-5.1); Protein, Total 7.4 g/dL (6.4-8.2); Sodium Level 139 mmol/L (136-145); Triglycerides 184 mg/dL; Very Low Density Lipoprotein 37 mg/dL (5-40)
[2024-08-11 18:07] LABS: Vitamin B1, Thiamine 155.4 nmol/L (66.5-200.0)
== END | disposition home or self-care (01) ==
LOC: MTLAB 09:31
PROVIDERS: PCP Family Medicine; Referring Provider Family Medicine; Visit Provider Family Medicine
DX: I10 Essential (primary) hypertension (principal); E53.9 Vitamin B deficiency, unspecified; E87.6 Hypokalemia; E55.9 Vitamin D deficiency, unspecified
CPT/HCPCS: 36415; 80053; 80061; 81001; 82306; 82607; 83735; 84207; 84425; 84443; 85025

== ENCOUNTER 2024-10-01 05:10 | Day surgery (SDC) | payer MEDICARE, SELFPAY ==
[2024-10-01] VITALS (8 sets, daily range): BP systolic 95–138; BP diastolic 48–61; PULSE 66–81; RESP 16; TEMP 36.2–36.6; O2SAT 93–98; BMI 27.1
--- NOTE | 2024-10-01 06:30 | COLBX_PTH ---
PATIENT: RAFAEL MONTERROSO LOC: EN U#:[id number] AGE/SX: 79/F ROOM: RE10/01/[address]: Dr. Eamon Ko DO : 1945 BED: DIS: 10/01/2024 SPEC #: [id number] RECD: 10/01/24 11:07 STATUS: MIGUEL CONI #: [id number] REBECCA: 10/01/24 06:[address]: Eamon Ko DEPT: SURGICAL PATHOLOGY RECD BY: Argentina Coleman ENTERED: 10/01/24 12:26 SP TYPE: COLON BX DAVE DR: Dr. Stevan Walters MD Tissues: A - COLON BIOPSY B - Sigmoid colon biopsy Procedures: Surgery Specimen Level IV HEADER OPERATION: Colonoscopy with biopsy and polypectomy PRE-OP DIAGNOSIS: Colonic polyp TISSUE SUBMITTED: A- Splenic flexure polyp biopsy, B- Sigmoid polyp MICROSCOPIC DIAGNOSIS A. Splenic flexure polyp, biopsy: Tubular adenoma. B. Sigmoid polyp, polypectomy: Tubular adenoma. CLARI. 10/02/2024 MICROSCOPIC DESCRIPTION Slides are reviewed. GROSS DESCRIPTION A. Received in fixative is one container labeled with the patient's name and designated Splenic flexure polyp biopsy. The specimen consists of one irregular fragment of light marcelino soft tissue that measures 0.3 x 0.3 x 0.1 cm. The specimen is totally submitted in one cassette. B. Received in fixative is one container labeled with the patient's name and designated Sigmoid polyp. The specimen consists of a pink-red polyp measuring 0.7 x 0.5 x 0.5 cm. The presumed base is inked. The polyp is bisected and submitted entirely in one cassette. 10/01/2024 TC:1 [facility]:[id number]
--- NOTE | 2024-10-01 06:37 | PCM.HP.BLA ---
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 Is patient in pain?: No Allergies influenza virus vaccine ts (From Fluarix) Allergy (Severe, Verified 08/30/24 14:04) Angioedemaatenolol (From Tenoretic) Allergy (Mild, Verified 08/30/24 14:04) Otherchlorthalidone (From Tenoretic) Allergy (Mild, Verified 08/30/24 14:04) Otherquinapril (From Accupril) Allergy (Mild, Verified 08/30/24 14:04) Rash Medications ?Medication ?Instructions ?Recorded ?Confirmed ?Type sertraline 100 mg tablet 100 mg PO DAILY 10/20/14 08/30/24 History cholecalciferol (vitamin D3) 125 125 mcg PO DAILY 12/06/23 08/30/24 History mcg (5,000 unit) capsule vitamin B complex 1 cap PO DAILY 12/06/23 08/30/24 History amlodipine 10 mg tablet 10 mg PO QDAY 06/25/24 08/30/24 History calcium carbonate 500 mg PO DAILY 06/25/24 08/30/24 History hydrochlorothiazide 25 mg tablet 25 mg PO QDAY 06/25/24 08/30/24 History latanoprost 0.005 % eye drops 1 drp ophthalmic (eye) QHS GLAUCOMA 06/25/24 08/30/24 History lisinopril 40 mg tablet 40 mg PO DAILY 06/25/24 08/30/24 History rosuvastatin 10 mg tablet 10 mg PO QHS 06/25/24 08/30/24 History vitamins A,C,O-zoos-ckxkfy 4,296 1 cap PO BID 06/25/24 08/30/24 History mcg-226 mg-90 mg capsule (PreserVision AREDS) Have you fallen in the past year?: No PFSH Medical History (Updated 08/30/24 @ 14:25 by OPAL Gil) Sigmoid polyp Wears partial dentures Wears glasses Post-menopausal Anxiety High cholesterol Non-smoker History of stress test Depression Incontinence Hyperlipidemia HTN (hypertension) Surgical History History of lumpectomy History of carpal tunnel release of both wrists History of hysterectomy History of cataract extraction History of cholecystectomy History of appendectomy Family History (Updated 06/25/24 @ 14:48 by Cesilia Yañez) Father Gastric ulcerBrother Cancer leukemia and bile ductSister Diabetes Hypertension Kidney diseaseMother CVA (cerebral vascular accident) Hypertension Social History Smoking Status: Never smoker alcohol intake: never substance use type: does not use HPI HPI Details: RAFAEL MONTERROSO, is a 79 F who presents to the office today for establishment with [facility] after a screening colonoscopy with Dr. Vero Gallo where he was unable to resect a large polyp; seeking consult for repeat colonoscopy and polypectomy. She reports occasional external hemorrhoid flare which she comfortably medicates with ointment and denies all other GI complaints. Exam Const General: cooperative, healthy appearing and comfortable Nutritional Appearance: overweight Orientation: alert HENMT Head: normal to inspection Ears: hearing grossly normal bilaterally Nose: external nose normal Face and sinus: normal facial exam and face symmetric Eyes General: appearance normal, both eyes and all related structures Sclera: sclerae normal Neck Neck: normal visual inspection and full ROM Neck mass: No Chest Chest palpation & inspection: normal inspection of the chest Resp Effort & Inspection: normal respiratory effort, able to speak in complete sentences and symmetric chest movement GI Inspection: normal to inspection and obesity Auscultation: normal bowel sounds Palpation: soft Skin General: no rashes or lesions noted Neuro General: patient alert, patient awake, patient oriented x3 and moves all extremities Cognition: normal cognition Speech: speech normal Gait: normal gait Extrem General: full ROM Psych Appearance: well kempt Mental Status: mental status grossly normal Mood: congruent mood Affect: normal affect Speech and Movement: speech and movement normal Attitude: cooperative Thought Process: normal Assessment and Plan Assessment and Plan (1) Polyp, colonic: Status: Acute Qualifiers: Colon polyp type: unspecified Colon location: unspecified part of colon Qualified Code(s): K63.5 - Polyp of colon Plan: RAFAEL MONTERROSO, is a 79 F who presents to the office today for establishment with [facility] after a screening colonoscopy with Dr. Vero Gallo where he was unable to resect a large polyp; seeking consult for repeat colonoscopy and polypectomy. colonoscopy for polypectomy Coding Level of Care Code New Pt Off vis,new,level 2 Patient Type New History Problem Focused Exam Problem Focused Medical Decision Making Straight Forward Diagnoses Polyp of colon, unspecified part of colon, unspecified type K63.5 Colon polyp type: unspecified Colon location: unspecified part of colon I have examined the patient and the H&P has been reviewed. There are no clinical changes since date of exam.
--- NOTE | 2024-10-01 06:38 | PRE.ANES_ITS ---
ASA Classification* ASA Classification ASA Classification: 2 Assessment & Plan Anesthesia* Anesthesia Assessment Anesthesia Assessment: Discussed sedation and/or anesthesia options, risks, benefits, and alternatives with patient/parents/legal guardian/POA. Questions invited. The patient/parents/legal guardian/POA seems to understand and agrees to proceed with anesthesia plan. Reviewed the physical assessment, medical history, allergy history and patient home medications list prior to surgery/procedure/anesthetic and documented any changes. Performed airway and anesthesia risk assessments. Anesthesia Type Anesthesia Type: MAC History Source History Obtained from:: Patient and Chart Anesthesia Focused Assessment* Temperature: 97.8 F Pulse Rate: 81 Blood Pressure: 138/61 Respiratory Rate: 16 Pulse Ox: 97 Airway Assessment Mouth opens: >3 cm Mallampati Score: III Focused Labs Anesthesia Preop lab: CBC WBC 9.0 K/mm3 (4.4-11.0) 08/07/24 09:34 RBC 4.09 M/mm3 (4.2-5.4) L 08/07/24 09:34 Hgb 13.0 g/dL (12.0-15.0) 08/07/24 09:34 Hct 39.1 % (37-47) 08/07/24 09:34 Plt Count 305 K/mm3 (150-450) 08/07/24 09:34 CHEMISTRY Potassium 3.8 mmol/L (3.5-5.1) 08/07/24 09:34 Sodium 139 mmol/L (136-145) 08/07/24 09:34 Magnesium 2.0 mg/dL (1.6-2.6) 08/07/24 09:34 Phosphorus 2.2 mg/dL (2.5-4.9) L 01/04/24 09:12 BUN 19 mg/dL (7-18) H 08/07/24 09:34 Creatinine 0.96 mg/dL (0.55-1.02) 08/07/24 09:34 Glucose 98 mg/dL (74-106) 08/07/24 09:34 TSH 3.090 uIU/mL (0.358-3.740) 08/07/24 09:34 COAG Pre-Assessment Diagnosis/Proposed Procedure Planned Operative Procedure(s): CSCOPE Anesthesia History Anesthesia History - medical record transcriber: Anesthesia History - medical record transcriber Hx Hospitalization No 09/25/24 13:41 Any Problems With Anesthesia No 09/25/24 13:41 Cholinesterase deficiency No 09/25/24 13:41 You/Your Family Experience No 09/25/24 13:41 fever (hyperthermia) with Relationship Recent Exposure to Contagious No 10/01/24 05:38 Disease Does patient have nerve No 09/25/24 13:41 stimulator Patient instructed to have device shut off --Does patient have Pacemaker No 10/01/24 05:38 or ICD? When Was Last Pacemaker Check QUESTION #4 FULL TEXT: You/Your Family Experience fever (hyperthermia) with Anesthesia Last Oral Intake Last Oral intake: Last Oral Intake NPO since 20:00 10/01/24 05:38 Meds taken in AM with sips of Yes 10/01/24 05:38 water? Meds patient instructed to AMLODIPINE 10/01/24 05:38 take am of surgery PONV PONV - medical record transcriber: PONV - medical record transcriber Female Yes 09/25/24 13:41 HX of Motion Sickness Yes 09/25/24 13:41 HX of N/V After Surgery No 09/25/24 13:41 Non-Smoker Yes 09/25/24 13:41 Duration of Surgery greater No 09/25/24 13:41 than 60 minutes Number of Risk Factors 3 09/25/24 13:41 PONV Score Moderate Risk 09/25/24 13:41 Height & Weight Height & Weight: Anesthesia: Height & Weight Height 5 ft 1 in 10/01/24 05:38 Weight: 65 kg 10/01/24 05:38 Body Mass Index (BMI) 27.1 10/01/24 05:38 Respiratory Assessment Respiratory Assessment - medical record transcriber: Respiratory Tract Infection Hx - medical record transcriber Hx Respiratory Tract Infection No 09/25/24 13:41 STOP Sleep Apnea STOP Sleep Apnea - medical record transcriber: STOP Sleep Apnea - medical record transcriber Hx Hypertension Yes 09/25/24 13:41 Hx Sleep Apnea No 09/25/24 13:41 CPAP BIPAP Do you snore loudly (louder No 09/25/24 13:41 than talking or can be heard Do you often feel tired/ No 09/25/24 13:41 fatigued/ sleepy during daytime? Has anyone observed you stop No 09/25/24 13:41 breathing during sleep? STOP Results Negative 09/25/24 13:41 QUESTION #5 FULL TEXT : Do you snore loudly (louder than talking or can be heard through closed doors)? 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 Specify any problems Hx of Preganancy in last 3 N/A 09/25/24 13:41 Months Nurse Filling Out Transfusion NBUCHER 09/25/24 13:41 & Questions: Date: 09/25/24 09/25/24 13:41 Time: 13:42 09/25/24 13:41 Patient unable to answer at this time (ie. confused, unrespo /Reproduction History /Reproductive History - medical record transcriber: /Reproductive Hx- medical record transcriber Hx Now Gestational Age (in weeks): EDC: Hx Hx Para Hx Section SAB No 09/25/24 13:41 PFSH Medical History Sigmoid polyp Wears partial dentures Wears glasses Post-menopausal Anxiety High cholesterol Non-smoker History of stress test Depression Incontinence Hyperlipidemia HTN (hypertension) Home Medications ?Medication ?Instructions ?Recorded ?Last Taken ?Type sertraline 100 mg tablet 100 mg PO DAILY 10/20/14 09/30/24 History cholecalciferol (vitamin D3) 125 125 mcg PO DAILY 12/06/23 09/30/24 History mcg (5,000 unit) capsule vitamin B complex 1 cap PO DAILY 12/06/23 09/30/24 History amlodipine 10 mg tablet 10 mg PO QDAY 06/25/24 10/01/24 History calcium carbonate 500 mg PO DAILY 06/25/24 07/18/24 History hydrochlorothiazide 25 mg tablet 25 mg PO QDAY 06/25/24 09/30/24 History latanoprost 0.005 % eye drops 1 drp ophthalmic (eye) QHS GLAUCOMA 06/25/24 09/30/24 History lisinopril 40 mg tablet 40 mg PO DAILY 06/25/24 09/30/24 History rosuvastatin 10 mg tablet 10 mg PO QHS 06/25/24 09/30/24 History vitamins A,C,F-gzws-uzddts 4,296 1 cap PO BID 06/25/24 09/30/24 History mcg-226 mg-90 mg capsule (PreserVision AREDS) Allergy/AdvReac Type Severity Reaction Status Date / Time influenza virus vaccine ts Allergy Severe Angioedema Verified 10/01/24 05:35 (From Fluarix) atenolol (From Tenoretic) Allergy Mild Other Verified 10/01/24 05:35 chlorthalidone (From Allergy Mild Other Verified 10/01/24 05:35 Tenoretic) quinapril (From Accupril) Allergy Mild Rash Verified 10/01/24 05:35 Family History Father Gastric ulcer Brother Cancer leukemia and bile duct Sister Diabetes Hypertension Kidney disease Mother CVA (cerebral vascular accident) Hypertension Surgical History History of colonoscopy History of lumpectomy History of carpal tunnel release of both wrists History of hysterectomy History of cataract extraction History of cholecystectomy History of appendectomy Social History Smoking Status: Never smoker alcohol intake: never substance use type: does not use Review of Systems (Anesthesia) ROS Narrative System reviewed and no additional complaints, except as documented.
--- NOTE | 2024-10-01 07:23 | OP.COLON_ITS ---
Patient Name: Neeru Cruz Procedure Date: 10/01/2024 6:19 AM Date of : 1945 Age: 79 Procedure: Colonoscopy Indications: High risk colon cancer surveillance: Personal history of colonic polyps Providers: Eamon Ko DO Referring MD: Stevan Walters Medicines: Monitored Anesthesia Care Patient Profile: This is an 79 year old female. Refer to note in patient chart for documentation of history and physical. Last Colonoscopy: within the past 3 months. Complications: No immediate complications. Procedure: Pre-Anesthesia Assessment: - Prior to the procedure, a History and Physical was performed, and patient medications and allergies were reviewed. The patient is competent. The risks and benefits of the procedure and the sedation options and risks were discussed with the patient. All questions were answered and informed consent was obtained. Patient identification and proposed procedure were verified by the physician in the pre-procedure area. Mental Status Examination: alert and oriented. Airway Examination: normal oropharyngeal airway and neck mobility. Respiratory Examination: clear to auscultation. CV Examination: normal. Prophylactic Antibiotics: The patient does not require prophylactic antibiotics. Prior Anticoagulants: The patient has taken no anticoagulant or antiplatelet agents except for NSAID medication. ASA Grade Assessment: II - A patient with mild systemic disease. After reviewing the risks and benefits, the patient was deemed in satisfactory condition to undergo the procedure. The anesthesia plan was to use monitored anesthesia care (MAC). Immediately prior to administration of medications, the patient was re-assessed for adequacy to receive sedatives. The heart rate, respiratory rate, oxygen saturations, blood pressure, adequacy of pulmonary ventilation, and response to care were monitored throughout the procedure. The physical status of the patient was re-assessed after the procedure. After I obtained informed consent, the scope was passed under direct vision. Throughout the procedure, the patient's blood pressure, pulse, and oxygen saturations were monitored continuously. The Colonoscope was introduced through the anus and advanced to the cecum, identified by appendiceal orifice and ileocecal valve. The colonoscopy was performed without difficulty. The patient tolerated the procedure well. The quality of the bowel preparation was good. The ileocecal valve, appendiceal orifice, and rectum were photographed. Scope In: 6:48:23 AM Scope Withdrawal Time 0 hours 23 minutes 1 second Scope Out: 7:18:07 AM Total Procedure Duration Time 0 hours 29 minutes 44 seconds Findings: The perianal and digital rectal examinations were normal. An 8 mm polyp was found in the recto-sigmoid colon. The polyp was sessile. The polyp was removed with a hot snare. Resection and retrieval were complete. Verification of patient identification for the specimen was done. Estimated blood loss was minimal. A 4 mm polyp was found in the splenic flexure. The polyp was sessile. The polyp was removed with a jumbo cold forceps. Resection and retrieval were complete. Verification of patient identification for the specimen was done. Estimated blood loss was minimal. Multiple small and large-mouthed diverticula were found in the recto-sigmoid colon and sigmoid colon. The exam was otherwise without abnormality on direct and retroflexion views. Impression: - One 8 mm polyp at the recto-sigmoid colon, removed with a hot snare. Resected and retrieved. - One 4 mm polyp at the splenic flexure, removed with a jumbo cold forceps. Resected and retrieved. - Diverticulosis in the recto-sigmoid colon and in the sigmoid colon. - The examination was otherwise normal on direct and retroflexion views. Recommendation: - Discharge patient to home. - Resume previous diet. - Continue present medications. - Await pathology results. - Repeat colonoscopy in 3 years for surveillance. Procedure Code(s): --- Professional --- 61414, Colonoscopy, flexible; with removal of tumor(s), polyp(s), or other lesion(s) by snare technique 21798, 59, Colonoscopy, flexible; with biopsy, single or multiple CPT copyright 2021 [employer]. All rights reserved. The codes documented in this report are preliminary and upon web content executive review may be revised to meet current compliance requirements. Eamon Ko DO 10/01/2024 7:22:51 AM This report has been signed electronically. Number of Addenda: 0 Note Initiated On: 10/01/2024 6:19 AM
--- NOTE | 2024-10-01 07:23 | OP.CCLET_ITS ---
10/01/2024 Stevan Walters [address] [place] [address] Re : Colonoscopy procedure for Neeru Cruz Dear Dr. Walters This procedure was performed on Tuesday, October 01, 2024. My impressions and recommendations are as follows: Impressions : - One 8 mm polyp at the recto-sigmoid colon, removed with a hot snare. Resected and retrieved. - One 4 mm polyp at the splenic flexure, removed with a jumbo cold forceps. Resected and retrieved. - Diverticulosis in the recto-sigmoid colon and in the sigmoid colon. - The examination was otherwise normal on direct and retroflexion views. Recommendations : - Discharge patient to home. - Resume previous diet. - Continue present medications. - Await pathology results. - Repeat colonoscopy in 3 years for surveillance. My findings are described in the full procedure note, which is enclosed. If I can be of further assistance, please feel free to contact me at . Sincerely, Eamon Ko, 10/01/2024 7:22:51 AM This report has been signed electronically.
--- NOTE | 2024-10-01 07:25 | PCM.POST.ANE ---
Anesthesia: Postop Eval I Current Vital Signs Temperature: 97.2 F Pulse Rate: 67 Blood Pressure: 96/53 Respiratory Rate: 16 Pulse Ox: 98 Oxygen Delivery Method: Room Air Assessment Airway patent: Yes Spontaneous unlabored respirations: Yes Mental status: Awake and Calm nausea: No Vomiting: No Anesthesia Complication: No Fluid Hydration Crystalloid volume administer (ml): 60 Total IV fluid infused: 60 Progress Note Anesthesia document: Postop Eval 1 completed: Yes
--- NOTE | 2024-10-01 07:27 | PCM.POSTANE2 ---
Anesthesia Postop Eval I Sum Postop Eval Completion status Anesthesia document: Postop Eval 1 completed: Yes Anesthesia Postop Eval I Summary Anesthesia Postop Eval I Summary: Anesthesia Postop Eval I: Assessment Summary Airway patent Yes 10/01/24 07:25 [email or web address] Spontaneous unlabored Yes 10/01/24 07:25 [email or web address] respirations Mental status Awake,Calm 10/01/24 07:25 [email or web address] nausea No 10/01/24 07:25 [email or web address] Vomiting No 10/01/24 07:25 [email or web address] Anesthesia Postop Eval I: Fluid Summary Crystalloid volume administer 60 10/01/24 07:25 [email or web address] (ml) Colloids volume administered ( ml) Blood Product volume administered (ml) Total IV fluid infused 60 10/01/24 07:25 [email or web address] Anesthesia Postop Eval I: Summary Notes Anesthesia Complication No 10/01/24 07:25 [email or web address] Anesthesia Complication Comment: Post-operative progress note Anesthesia: Postop Eval II Evaluation Mental status: Awake Pain Level: 0 nausea: No Vomiting: No
== END 2024-10-01 08:06 | disposition home or self-care (01) ==
LOC: EN 05:10 → AC 05:11
PROVIDERS: PCP Family Medicine; Referring Provider Family Medicine; Visit Provider Internal Medicine Gastroenterology
PROC: 0DJD8ZZ Inspection of Lower Intestinal Tract, Via Natural or Artificial Opening Endoscopic (ICD-10-PCS; CPT 45378; principal; 2024-10-01 06:25)
DX: Z12.11 Encounter for screening for malignant neoplasm of colon (principal); D12.3 Benign neoplasm of transverse colon; D12.5 Benign neoplasm of sigmoid colon; K57.30 Diverticulosis of large intestine without perforation or abscess without bleeding; I10 Essential (primary) hypertension; E78.00 Pure hypercholesterolemia, unspecified; F32.A Depression, unspecified; F41.9 Anxiety disorder, unspecified; E66.3 Overweight; Z68.27 Body mass index [BMI] 27.0-27.9, adult; Z90.49 Acquired absence of other specified parts of digestive tract; Z79.899 Other long term (current) drug therapy; Z86.0100 Personal history of colon polyps, unspecified
CPT/HCPCS: 45385; 45380; 88305; A4216; J2405

== ENCOUNTER → 2024-11-25 | Outpatient (CLI) | payer MEDICARE, SELFPAY ==
[2024-11-25 09:43] LABS: Bacteria 0 SEEN /hpf (None Seen); Red Blood Cells-Urine 0 SEEN /hpf (0-5)
[2024-11-25 12:05] LABS: Color, Urine Yellow (Yellow); Glucose, Dipstick Normal (Normal); Ketone-Dipstick Negative (Negative); Leukocyte Esterase-Dipstick 25 /ul (Negative); Nitrite-Dipstick Negative (Negative); Occult Blood-Urine Negative /ul (Negative); Protein-Dipstick 15 mg/dl (Negative); Urine Bilirubin Dipstick Negative (Negative); Urine Clarity Clear (Clear); Urine Urobilinogen Normal (Normal)
[2024-11-25 12:19] LABS: Absolute Lymphocyte Count 1.86 X10^3/uL (0.83-4.51); Absolute Neutrophil Count 4.4 X10^3/uL (2.0-7.7); Basophil# 0.04 X10^3/uL; Basophil% 0.6 % (0-1); Eosinophil# 0.17 X10^3/uL; Eosinophils% 2.5 % (0-5); Hematocrit 38.3 % (37-47); Hemoglobin 12.2 g/dL (12.0-15.0); Lymphocyte # 1.86 X10^3/ul (0.83-4.51); Lymphocyte % 26.9 % (19-41); Mean Corp Hgb Conc 31.9 g/dL (32-36); Mean Corpuscular Hgb 30.7 pg (27.0-32.0); Mean Corpuscular Volume 96.2 fL (81-99); Mean Platelet Vol. 9.9 fl (6.2-12.0); Monocyte# 0.46 X10^3/uL; Monocyte% 6.7 % (0-10); NRBC Flagged by Analyzer 0 % (0-5); Neutrophil # 4.37 X10^3/uL (2.7-7.7); Neutrophil % 63.2 % (47-70); Platelet Count 274 K/mm3 (150-450); RBC Distribution Width CV 12.7 % (11.6-14.6); RBC Distribution Width SD 45.1 fl (35.1-43.9); Red Blood Count 3.98 M/mm3 (4.2-5.4); White Blood Count 6.9 K/mm3 (4.4-11.0)
[2024-11-25 12:30] LABS: Mucous, Urine 1+ /hpf (<or=2+); Squamous Epithelial Cells - UA 0-5 SEEN /hpf (5-10); White Blood Cells 0-5 SEEN /hpf (0-5)
[2024-11-25 12:31] LABS: Hyaline Cast 0-5 SEEN /lpf (0-5)
[2024-11-25 13:22] LABS: AST(SGOT) 20 U/L (15-37); Alanine Aminotransfer ALT/SGPT 22 U/L (13-56); Albumin, Serum 3.8 g/dL (3.2-5.0); Alkaline Phosphatase 73 U/L (45-117); Anion Gap 8 (5-15); BUN 22 mg/dL (7-18); BUN/Creat Ratio 23.1 RATIO (10-20); Calcium,Total 9.4 mg/dL (8.5-10.1); Chloride 108 mmol/L (98-107); Cholesterol 137 mg/dL (200); Creatinine, Serum 0.95 mg/dL (0.55-1.02); EST Glomerular Filtration Rate 60 mL/min (>60); Est Glom Filt Rate - Afr Amer 73 mL/min (>60); Globulin 3.8 g/dL (2.2-4.2); Glucose 93 mg/dL (74-106); High Density Lipoprotein 57 mg/dL; Potassium 3.6 mmol/L (3.5-5.1); Protein, Total 7.6 g/dL (6.4-8.2); Sodium Level 142 mmol/L (136-145); Triglycerides 101 mg/dL; Very Low Density Lipoprotein 20 mg/dL (5-40)
[2024-11-25 14:58] LABS: Vitamin B12 336 pg/mL (211-911)
[2024-12-02 11:07] LABS: VITAMIN B6 21.2 ug/L (3.4-65.2)
== END | disposition home or self-care (01) ==
LOC: MFPLAB 09:40
PROVIDERS: PCP Family Medicine; Referring Provider Family Medicine; Visit Provider Family Medicine
DX: I10 Essential (primary) hypertension (principal); E55.9 Vitamin D deficiency, unspecified; E78.5 Hyperlipidemia, unspecified; E53.9 Vitamin B deficiency, unspecified
CPT/HCPCS: 36415; 80053; 80061; 81001; 82306; 82607; 84207; 84425; 84443; 85025

== ENCOUNTER → 2025-05-28 | Outpatient (CLI) | payer MEDICARE, SELFPAY ==
--- NOTE | 2025-05-28 15:59 | RAD_ITS ---
EXAM: XR Abdomen, 2 Views and XR Chest, 1 View CLINICAL INDICATION: PAIN TECHNIQUE: Frontal view of the chest, frontal view of the abdomen/pelvis and upright or decubitus view of the abdomen. COMPARISON: No relevant prior studies available. FINDINGS: LUNGS AND PLEURAL SPACES: Unremarkable. No consolidation. No pneumothorax. HEART: Unremarkable. No cardiomegaly. MEDIASTINUM: Unremarkable. Normal mediastinal contour. INTRAPERITONEAL SPACE: No free air. GASTROINTESTINAL TRACT: Fecal retention in the colon consistent with constipation. No dilation. ORGANS: Cholecystectomy clips. BONES/JOINTS: Unremarkable. No acute fracture. RAD/Acute Abdomen Inc Chest IMPRESSION: Fecal retention in the colon consistent with constipation. Reading Location: [facility]
--- NOTE | 2025-05-28 15:59 | RAD_ITS ---
EXAM: XR Abdomen, 2 Views and XR Chest, 1 View CLINICAL INDICATION: PAIN TECHNIQUE: Frontal view of the chest, frontal view of the abdomen/pelvis and upright or decubitus view of the abdomen. COMPARISON: No relevant prior studies available. FINDINGS: LUNGS AND PLEURAL SPACES: Unremarkable. No consolidation. No pneumothorax. HEART: Unremarkable. No cardiomegaly. MEDIASTINUM: Unremarkable. Normal mediastinal contour. INTRAPERITONEAL SPACE: No free air. GASTROINTESTINAL TRACT: Fecal retention in the colon consistent with constipation. No dilation. ORGANS: Cholecystectomy clips. BONES/JOINTS: Unremarkable. No acute fracture. RAD/Acute Abdomen Inc Chest IMPRESSION: Fecal retention in the colon consistent with constipation. Reading Location: [facility]
[2025-05-28 17:52] LABS: Hematocrit 37.3 % (37-47); Hemoglobin 12.5 g/dL (12.0-15.0); Immature Granulocytes Count 0.040 X10^3/uL (0.0-0.0); Mean Corp Hgb Conc 33.5 g/dL (32-36); Mean Corpuscular Volume 94.4 fL (81-99); Mean Platelet Vol. 9.8 fl (6.2-12.0); NRBC Flagged by Analyzer 0 % (0-5); Platelet Count 269 K/mm3 (150-450); RBC Distribution Width CV 12.4 % (11.6-14.6); RBC Distribution Width SD 43.4 fl (35.1-43.9); Red Blood Count 3.95 M/mm3 (4.2-5.4); White Blood Count 8.1 K/mm3 (4.4-11.0)
[2025-05-28 18:55] LABS: AST(SGOT) 26 U/L (<=31); Alanine Aminotransfer ALT/SGPT 22 U/L (<=34); Albumin, Serum 4.4 g/dL (3.4-4.8); Alkaline Phosphatase 86 U/L (35-104); Anion Gap 12 (5-15); BUN 22 mg/dL (4-19); BUN/Creat Ratio 23.5 RATIO (10-20); Calcium,Total 9.5 mg/dL (7.6-11.0); Carbon Dioxide 25.3 mmol/L (21.0-32.0); Chloride 104 mmol/L (98-108); Globulin 2.8 g/dL (2.2-4.2); Glucose 102 mg/dL (70-99); Lipase 67 U/L (13-75); Potassium 3.8 mmol/L (3.3-5.1)
== END | disposition home or self-care (01) ==
PROVIDERS: PCP Family Medicine; Referring Provider Family Medicine; Visit Provider Family Medicine
DX: R10.9 Unspecified abdominal pain (principal)
CPT/HCPCS: 36415; 74022; 80053; 83690; 85025

== ENCOUNTER → 2025-06-02 | Outpatient (CLI) | payer MEDICARE, SELFPAY ==
--- NOTE | 2025-06-02 12:50 | US_ITS ---
PROCEDURE: KIDNEY AND BLADDER, 06/02/2025 REASON FOR EXAM: UNSPECIFIED ABDOMINAL PAIN TECHNIQUE: Grayscale and color doppler ultrasound of the kidneys and bladder was performed. COMPARISON: None FINDINGS: Exam limited by shadowing bowel gas. Right kidney: 10.6 cm in length. Echogenic nonshadowing possible nonobstructing intrarenal calculus versus prominent renal sinus fat measures 4 x 2 x 5 mm. Cysts up to 16 x 14 x 12 mm. No hydronephrosis. Left kidney: 16.0 cm in length. Cysts up to 7.4 x 6.6 x 5.7 cm. A 2.3 x 2.3 2.6 cm cyst contains a thin internal septation. Echogenic nonshadowing possible nonobstructing intrarenal calculus versus prominent renal sinus fat measures 5 x 4 x 4 mm. No hydronephrosis. Bladder: Underdistended and suboptimally evaluated; grossly unremarkable. Estimated volume 101 mL. Other: None. US/Kidney and Bladder IMPRESSION: 1. No hydronephrosis. If unexplained symptoms persist, consider CT. 2. Additional description as above. Reading Location: [id number]
== END | disposition home or self-care (01) ==
LOC: US 12:49
PROVIDERS: PCP Family Medicine; Referring Provider Family Medicine; Visit Provider Family Medicine
DX: R10.9 Unspecified abdominal pain (principal)
CPT/HCPCS: 76770

== ENCOUNTER → 2025-10-29 | Outpatient (CLI) | payer MEDICARE, SELFPAY ==
[2025-10-29 09:25] LABS: Mucous, Urine 0 SEEN /hpf (<or=2+); Red Blood Cells-Urine 0 SEEN /hpf (0-5)
[2025-10-29 10:19] LABS: Hematocrit 40.8 % (37-47); Hemoglobin 13.3 g/dL (12.0-15.0); Immature Granulocytes Count 0.040 X10^3/uL (0.0-0.0); Mean Corp Hgb Conc 32.6 g/dL (32-36); Mean Corpuscular Volume 95.3 fL (81-99); Mean Platelet Vol. 9.7 fl (6.2-12.0); NRBC Flagged by Analyzer 0 % (0-5); Platelet Count 277 K/mm3 (150-450); RBC Distribution Width CV 12.8 % (11.6-14.6); RBC Distribution Width SD 44.6 fl (35.1-43.9); Red Blood Count 4.28 M/mm3 (4.2-5.4); White Blood Count 7.9 K/mm3 (4.4-11.0)
[2025-10-29 10:21] LABS: Color, Urine Yellow (Yellow); Glucose, Dipstick Normal (Normal); Ketone-Dipstick 5 mg/dl (Negative); Leukocyte Esterase-Dipstick 100 /ul (Negative); Nitrite-Dipstick Negative (Negative); Occult Blood-Urine Negative /ul (Negative); Protein-Dipstick 30 mg/dl (Negative); Specific Gravity, Urine 1.020 (1.002-1.030); Urine Bilirubin Dipstick Negative (Negative)
[2025-10-29 11:02] LABS: Squamous Epithelial Cells - UA 0-5 SEEN /hpf (5-10)
[2025-10-29 13:14] LABS: AST(SGOT) 24 U/L (<=31); Alanine Aminotransfer ALT/SGPT 20 U/L (<=34); Albumin, Serum 4.4 g/dL (3.4-4.8); Alkaline Phosphatase 74 U/L (35-104); Anion Gap 12 (5-15); BUN 19 mg/dL (4-19); BUN/Creat Ratio 19.1 RATIO (10-20); Calcium,Total 10.2 mg/dL (7.6-11.0); Carbon Dioxide 26.8 mmol/L (21.0-32.0); Chloride 104 mmol/L (98-108); Cholesterol 171 mg/dL (<=200); Globulin 3.1 g/dL (2.2-4.2); Glucose 98 mg/dL (70-99); Low Density Lipoprotein Calc. 95 mg/dL; Magnesium 2.2 mg/dL (1.5-2.2); Potassium 4.8 mmol/L (3.3-5.1); Triglycerides 163 mg/dL; Very Low Density Lipoprotein 33 mg/dL (5-40); Vitamin B12 440 pg/mL (180-914); Vitamin D,25 Hydroxy 54.1 ng/mL (30-100); cholesterol:hdl ratio screen 3.58
[2025-11-02 18:07] LABS: VITAMIN B6 19.5 ug/L (3.4-65.2); Vitamin B1, Thiamine 224.1 nmol/L (66.5-200.0)
== END | disposition home or self-care (01) ==
LOC: MFPLAB 09:21
PROVIDERS: PCP Family Medicine; Visit Provider Family Medicine
DX: I10 Essential (primary) hypertension (principal); E55.9 Vitamin D deficiency, unspecified
CPT/HCPCS: 36415; 80053; 80061; 81001; 82306; 82607; 83735; 84207; 84425; 84443; 85025